=== PATIENT | male | born 1945 | race Caucasian/White ===

== ENCOUNTER 2018-03-10 08:00 | Outpatient (CLI) | payer MEDICARE ==
[2018-03-10 15:20] LABS: ALBUMIN 4.3 g/dL (3.2-5.5); ALBUMIN/GLOBULIN RATIO 1.4 (1.0-2.2); ALKALINE PHOSPHATASE 75 IU/L (42-121); ALT ALANINE AMINOTRANSFERASE 33 IU/L (10-60); AST ASPARTATE AMINOTRANSFERASE 32 IU/L (10-42); BASOPHILS % (AUTO) 0.5 %; BILIRUBIN,TOTAL 0.9 mg/dL (0.2-1.0); BUN - BLOOD UREA NITROGEN 29 mg/dL (6-20); CALCIUM 9.3 mg/dL (8.5-10.3); CARBON DIOXIDE - CO2 27 mmol/L (21-32); CHLORIDE 102 mmol/L (101-111); CHOL/HDL RATIO 5.3 (<5.0); CHOLESTEROL 155 mg/dL; CREATININE 1.1 mg/dL (0.6-1.2); EOSINOPHILS # (AUTO) 0.3 10^3/uL (0.0-0.7); EOSINOPHILS % (AUTO) 2.8 %; GFR - MDRD 66 (>89); GLUCOSE 109 mg/dL (70-100); HDL CHOLESTEROL 29 mg/dL; LDL CHOLESTEROL,CALCULATED 89 mg/dL; LDL/HDL RATIO 3.1 (<3.6); LYMPHOCYTES # (AUTO) 0.8 10^3/uL (1.5-3.5); LYMPHOCYTES % (AUTO) 8.8 %; MEAN CORPUSCULAR HEMOGLOBIN 30.3 pg (27.0-31.0); MEAN CORPUSCULAR HGB CONC 33.6 g/dL (32.0-36.0); MEAN CORPUSCULAR VOLUME 90.2 fL (80.0-94.0); MEAN PLATELET VOLUME 9.1 fL (7.4-11.4); MONOCYTES # (AUTO) 0.8 10^3/uL (0.0-1.0); MONOCYTES % (AUTO) 9.1 %; NEUTROPHILS # (AUTO) 7.2 10^3/uL (1.5-6.6); NEUTROPHILS % (AUTO) 78.8 %; PLT - PLATELET COUNT 128 10^3/uL (130-450); RED BLOOD COUNT 5.62 10^6/uL (4.70-6.10); RED CELL DISTRIBUTION WIDTH 13.4 % (12.0-15.0); SODIUM 136 mmol/L (135-145); TOTAL PROTEIN 7.3 g/dL (6.7-8.2); VLDL CHOLESTEROL 37 mg/dL; WHITE BLOOD COUNT 9.1 x10^3/uL (4.8-10.8)
[2018-03-13 12:52] LABS: HCV RNA QNT <1.18 NOT DETECTED Log IU/mL (NOT DETECTED); HCV RNA QUANT RT PCR <15 NOT DETECTED IU/mL (NOT DETECTED)
== END 2018-03-10 08:01 | disposition home or self-care (01) ==
LOC: LAB.R 08:00
PROVIDERS: ATTEND Internal Medicine
DX: D69.6 Thrombocytopenia, unspecified (principal); Z12.5 Encounter for screening for malignant neoplasm of prostate; F32.9 Major depressive disorder, single episode, unspecified; B19.20 Unspecified viral hepatitis C without hepatic coma; E78.5 Hyperlipidemia, unspecified
CPT/HCPCS: 80053; 80061; 84443; 85025; 87522; G0103; 81599; 83721; 84153; 86803

== ENCOUNTER 2019-05-24 08:51 | Outpatient (CLI) | payer MEDICARE ==
[2019-05-24 09:11] LABS: BASOPHILS # (AUTO) 0.1 10^3/uL (0.0-0.1); BASOPHILS % (AUTO) 0.8 %; EOSINOPHILS # (AUTO) 0.3 10^3/uL (0.0-0.7); EOSINOPHILS % (AUTO) 4.2 %; HGB - HEMOGLOBIN 16.5 g/dL (14.0-18.0); LYMPHOCYTES # (AUTO) 1.3 10^3/uL (1.5-3.5); LYMPHOCYTES % (AUTO) 20.4 %; MEAN CORPUSCULAR HEMOGLOBIN 31.1 pg (27.0-31.0); MEAN CORPUSCULAR HGB CONC 34.7 g/dL (32.0-36.0); MEAN CORPUSCULAR VOLUME 89.5 fL (80.0-94.0); MEAN PLATELET VOLUME 10.1 fL (7.4-11.4); MONOCYTES # (AUTO) 0.8 10^3/uL (0.0-1.0); MONOCYTES % (AUTO) 12.2 %; NEUTROPHILS % (AUTO) 62.1 %; PLT - PLATELET COUNT 110 10^3/uL (130-450); RED BLOOD COUNT 5.31 10^6/uL (4.70-6.10); RED CELL DISTRIBUTION WIDTH 13.1 % (12.0-15.0); WHITE BLOOD COUNT 6.4 x10^3/uL (4.8-10.8)
[2019-05-24 09:27] LABS: ALBUMIN 4.3 g/dL (3.2-5.5); ALBUMIN/GLOBULIN RATIO 1.5 (1.0-2.2); ALKALINE PHOSPHATASE 76 IU/L (42-121); ALT ALANINE AMINOTRANSFERASE 25 IU/L (10-60); AST ASPARTATE AMINOTRANSFERASE 25 IU/L (10-42); BILIRUBIN,TOTAL 0.8 mg/dL (0.2-1.0); BUN - BLOOD UREA NITROGEN 25 mg/dL (6-20); CALCIUM 9.4 mg/dL (8.5-10.3); CARBON DIOXIDE - CO2 27 mmol/L (21-32); CHLORIDE 107 mmol/L (101-111); CHOL/HDL RATIO 5.2 (<5.0); CHOLESTEROL 162 mg/dL; CREATININE 1.1 mg/dL (0.6-1.2); GFR - MDRD 66 (>89); GLUCOSE 112 mg/dL (70-100); HDL CHOLESTEROL 31 mg/dL; LDL CHOLESTEROL,CALCULATED 105 mg/dL; LDL/HDL RATIO 3.4 (<3.6); SODIUM 141 mmol/L (135-145); TOTAL PROTEIN 7.2 g/dL (6.7-8.2); VLDL CHOLESTEROL 26 mg/dL
== END 2019-05-24 08:52 | disposition home or self-care (01) ==
LOC: LAB 08:51
PROVIDERS: ATTEND Family Medicine
DX: D69.6 Thrombocytopenia, unspecified (principal); E78.5 Hyperlipidemia, unspecified; B19.20 Unspecified viral hepatitis C without hepatic coma
CPT/HCPCS: 36415; 80053; 80061; 83721; 84443; 85025

== ENCOUNTER 2019-06-10 10:16 | Outpatient (CLI) | payer MEDICARE | END 2019-06-10 10:17 | disposition home or self-care (01) | LOC: LAB 10:16 | PROVIDERS: ATTEND Family Medicine | DX: Z12.5 Encounter for screening for malignant neoplasm of prostate (principal) | CPT/HCPCS: 36415; G0103; 84153 ==

== ENCOUNTER 2020-07-13 07:00 | Outpatient (CLI) | payer MEDICARE ==
--- NOTE | 2020-07-13 13:13 | XRAY Report ---
PROCEDURE: Hip 1 View RT INDICATIONS: R HIP JOINT PAIN TECHNIQUE: 2 views of the hip were acquired. COMPARISON: None FINDINGS: Bones: No fractures or dislocations. No suspicious bony lesions. The visualized pelvic ring appear s intact. Mild to moderate right osteophytic degenerative changes including slight joint space narrow ing and osseous hypertrophy. Soft tissues: No suspicious soft tissue calcifications or masses. IMPRESSION: Mild to moderate right hip osteoarthritis. Reviewed by: Tiffanie Coleman MD, PhD on 07/13/2020 12:12 PM RICHIE Approved by: Tiffanie Coleman MD, PhD on 07/13/2020 12:12 PM AKLILY Station ID: [id number]
== END 2020-07-13 23:59 | disposition home or self-care (01) ==
LOC: DI.WCP 07:00
PROVIDERS: ATTEND Family Medicine
DX: M16.11 Unilateral primary osteoarthritis, right hip (principal)

== ENCOUNTER 2021-07-03 07:37 | Outpatient (CLI) | payer MEDICARE ==
[2021-07-03 12:25] LABS: BASOPHILS # (AUTO) 0.1 10^3/uL (0.0-0.1); BASOPHILS % (AUTO) 0.8 %; EOSINOPHILS # (AUTO) 0.2 10^3/uL (0.0-0.7); EOSINOPHILS % (AUTO) 3.4 %; HCT - HEMATOCRIT 48.2 % (42.0-52.0); LYMPHOCYTES # (AUTO) 1.1 10^3/uL (1.5-3.5); LYMPHOCYTES % (AUTO) 18.7 %; MEAN CORPUSCULAR HEMOGLOBIN 30.9 pg (27.0-31.0); MEAN CORPUSCULAR HGB CONC 33.2 g/dL (32.0-36.0); MEAN CORPUSCULAR VOLUME 93.2 fL (80.0-94.0); MEAN PLATELET VOLUME 10.9 fL (7.4-11.4); MONOCYTES # (AUTO) 0.7 10^3/uL (0.0-1.0); MONOCYTES % (AUTO) 11.3 %; NEUTROPHILS # (AUTO) 3.9 10^3/uL (1.5-6.6); NEUTROPHILS % (AUTO) 65.5 %; PLT - PLATELET COUNT 114 10^3/uL (130-450); RED BLOOD COUNT 5.17 10^6/uL (4.70-6.10); RED CELL DISTRIBUTION WIDTH 12.9 % (12.0-15.0); WHITE BLOOD COUNT 5.9 x10^3/uL (4.8-10.8)
[2021-07-03 13:38] LABS: ALBUMIN 4.5 g/dL (3.2-5.5); ALKALINE PHOSPHATASE 80 IU/L (42-121); ALT ALANINE AMINOTRANSFERASE 24 IU/L (10-60); AST ASPARTATE AMINOTRANSFERASE 29 IU/L (10-42); BILIRUBIN,TOTAL 0.9 mg/dL (0.2-1.0); BUN - BLOOD UREA NITROGEN 23 mg/dL (6-20); CALCIUM 9.8 mg/dL (8.5-10.3); CARBON DIOXIDE - CO2 28 mmol/L (21-32); CHLORIDE 110 mmol/L (101-111); CHOL/HDL RATIO 4.6 (<5.0); CHOLESTEROL 152 mg/dL; CREATININE 1.1 mg/dL (0.6-1.2); GFR - MDRD 66 (>89); GLUCOSE 105 mg/dL (70-100); HDL CHOLESTEROL 33 mg/dL; LDL CHOLESTEROL,CALCULATED 94 mg/dL; LDL/HDL RATIO 2.8 (<3.6); POTASSIUM 4.3 mmol/L (3.5-5.0); SODIUM 144 mmol/L (135-145); TOTAL PROTEIN 6.8 g/dL (6.7-8.2); TRIGLYCERIDES 126 mg/dL; VLDL CHOLESTEROL 25 mg/dL
[2021-07-03 13:49] LABS: THYROID STIMULATING HORMONE 3.23 uIU/mL (0.34-5.60)
== END 2021-07-03 23:59 | disposition home or self-care (01) ==
LOC: LAB.WCP 07:37
PROVIDERS: ATTEND Family Medicine
DX: D69.6 Thrombocytopenia, unspecified (principal); Z79.899 Other long term (current) drug therapy; Z12.5 Encounter for screening for malignant neoplasm of prostate; E78.5 Hyperlipidemia, unspecified; R97.20 Elevated prostate specific antigen [PSA]
CPT/HCPCS: 36415; 80053; 80061; 84443; 85025; G0103; 83721; 84153

== ENCOUNTER 2021-12-15 07:32 | Day surgery (SDC) | payer MEDICARE ==
[~2021-12-15 07:32] MED LIST: MIDAZOLAM 2 MG/2 ML VIAL ONE; PROPOFOL 500 MG/50 ML 500 MG/50 ML VIAL ONE
[2021-12-15] MEDS ORDERED: LACTATED RINGERS 1,000 ML IV ONE ×2 (07:55→09:20)
[2021-12-15 09:38] VITALS: BP 115/75
--- NOTE | 2021-12-15 11:39 | ANESTHESIA ---
Pre-Anesthesia VS, & Labs - Diagnosis screening - Procedure colonoscopy with biopsies Vital Signs: Temp Pulse Resp BP Pulse Ox 36.2 C L 78 14 115/75 97 12/15/21 09:37 12/15/21 09:37 12/15/21 09:37 12/15/21 09:37 12/15/21 09:37 Height: 6 ft Weight (kg): 90 kg Body Mass Index: 26.9 BMI Classification: Overweight - NPO >8 hours - Lab Results Lab results reviewed: Yes Home Medications and Allergies Home Medications: Ambulatory Orders Acyclovir 800 mg PO BID 12/15/21 Pravastatin [Pravachol] 40 mg PO DAILY 12/15/21 Zolpidem Tartrate [Ambien] 10 mg PO DAILY 12/15/21 traZODone [Desyrel] 50 mg PO HS 12/15/21 Acyclovir 800 mg PO BID 12/15/21 Pravastatin [Pravachol] 40 mg PO DAILY 12/15/21 Zolpidem Tartrate [Ambien] 10 mg PO DAILY 12/15/21 traZODone [Desyrel] 50 mg PO HS 12/15/21 Allergies/Adverse Reactions: Allergies Allergy/AdvReac Type Severity Reaction Status Date / Time No Known Drug Allergies Allergy Verified 12/15/21 07:49 Anes History & Medical History - Anesthetic History Anesthesia Complications: reports: No previous complications Family history of Anesthesia Complications: Denies Family history of Malignant Hyperthermia: Denies - Medical History Cardiovascular: reports: High cholesterol - Surgical History General: reports: Colonoscopy Orthopedic: reports: Other Exam General: Alert, Oriented x3, Cooperative, No acute distress Dental: WNL Mouth Openin Fingerbreadth Neck Mobility: Normal Mallampati classification: II Plan Anesthesia Type: General, Total IV Consent for Procedure(s) Verified and Reviewed: Yes Code Status: Attempt Resuscitation ASA classification: 2-Mild systemic disease Is this case an emergency?: No
--- NOTE | 2021-12-15 11:39 | ANESTHESIA POST OP EVALUATION ---
Anesthesia Post Eval - Post Anesthesia Eval Vitals: Last Vital Signs Temp 36.2 C L 12/15/21 09:37 Pulse 78 12/15/21 09:37 Resp 14 12/15/21 09:37 BP 115/75 12/15/21 09:37 Pulse Ox 97 12/15/21 09:37 CV Function Including HR & BP: Stable Pain Control: Satisfactory Nausea & Vomiting: Negative Mental Status: Baseline Respiratory Status: Airway Patent Hydration Status: Satisfactory Anesthesia Complications: None
== END 2021-12-15 07:33 | disposition home or self-care (01) ==
LOC: SDS 07:32
PROVIDERS: ATTEND Surgery
PROC: 0DBM8ZZ Excision of Descending Colon, Via Natural or Artificial Opening Endoscopic (ICD-10-PCS; principal; 2021-12-15 08:30)
DX: Z12.11 Encounter for screening for malignant neoplasm of colon (principal); D12.4 Benign neoplasm of descending colon; K64.1 Second degree hemorrhoids; K57.30 Diverticulosis of large intestine without perforation or abscess without bleeding; F17.210 Nicotine dependence, cigarettes, uncomplicated
CPT/HCPCS: 45380; J7120

== ENCOUNTER 2022-09-30 11:21 | Outpatient (CLI) | payer MEDICARE ==
[2022-09-30 11:45] LABS: BASOPHILS # (AUTO) 0.1 10^3/uL (0.0-0.1); EOSINOPHILS # (AUTO) 0.3 10^3/uL (0.0-0.7); EOSINOPHILS % (AUTO) 5.1 %; HCT - HEMATOCRIT 47.3 % (42.0-52.0); HGB - HEMOGLOBIN 15.6 g/dL (14.0-18.0); LYMPHOCYTES # (AUTO) 1.2 10^3/uL (1.5-3.5); MEAN CORPUSCULAR HEMOGLOBIN 29.8 pg (27.0-31.0); MEAN CORPUSCULAR VOLUME 90.4 fL (80.0-94.0); MEAN PLATELET VOLUME 10.4 fL (7.4-11.4); MONOCYTES # (AUTO) 0.8 10^3/uL (0.0-1.0); MONOCYTES % (AUTO) 15.4 %; NEUTROPHILS # (AUTO) 2.8 10^3/uL (1.5-6.6); NEUTROPHILS % (AUTO) 54.5 %; PLT - PLATELET COUNT 111 10^3/uL (130-450); RED BLOOD COUNT 5.23 10^6/uL (4.70-6.10); RED CELL DISTRIBUTION WIDTH 13.2 % (12.0-15.0); WHITE BLOOD COUNT 5.1 x10^3/uL (4.8-10.8)
[2022-09-30 11:59] LABS: ALBUMIN 4.4 g/dL (3.2-5.5); ALBUMIN/GLOBULIN RATIO 1.5 (1.0-2.2); ALKALINE PHOSPHATASE 82 IU/L (42-121); ALT ALANINE AMINOTRANSFERASE 26 IU/L (10-60); AST ASPARTATE AMINOTRANSFERASE 33 IU/L (10-42); BILIRUBIN,TOTAL 1.4 mg/dL (0.2-1.0); BUN - BLOOD UREA NITROGEN 25 mg/dL (6-20); CALCIUM 9.5 mg/dL (8.5-10.3); CARBON DIOXIDE - CO2 27 mmol/L (21-32); CHLORIDE 102 mmol/L (101-111); CHOL/HDL RATIO 4.5 (<5.0); CHOLESTEROL 156 mg/dL; GFR - MDRD 73 (>89); GLUCOSE 112 mg/dL (70-100); HDL CHOLESTEROL 35 mg/dL; LDL CHOLESTEROL,CALCULATED 97 mg/dL; LDL/HDL RATIO 2.8 (<3.6); POTASSIUM 4.5 mmol/L (3.5-5.0); SODIUM 137 mmol/L (135-145); TOTAL PROTEIN 7.4 g/dL (6.7-8.2); TRIGLYCERIDES 119 mg/dL; VLDL CHOLESTEROL 24 mg/dL
[2022-09-30 12:10] LABS: THYROID STIMULATING HORMONE 1.75 uIU/mL (0.34-5.60)
== END 2022-09-30 11:22 | disposition home or self-care (01) ==
LOC: LAB 11:21
PROVIDERS: ATTEND Family Medicine
DX: D69.6 Thrombocytopenia, unspecified (principal); B19.20 Unspecified viral hepatitis C without hepatic coma; E78.5 Hyperlipidemia, unspecified; R03.0 Elevated blood-pressure reading, without diagnosis of hypertension; R97.20 Elevated prostate specific antigen [PSA]
CPT/HCPCS: 36415; 80053; 80061; 84443; 85025; G0103; 83721; 84153

== ENCOUNTER 2022-12-18 10:18 | Inpatient (IN) | payer MEDICARE ==
[2022-12-18 11:15] LABS: BASOPHILS # (AUTO) 0.1 10^3/uL (0.0-0.1); BASOPHILS % (AUTO) 0.8 %; EOSINOPHILS # (AUTO) 0.2 10^3/uL (0.0-0.7); EOSINOPHILS % (AUTO) 2.3 %; HCT - HEMATOCRIT 47.9 % (42.0-52.0); LYMPHOCYTES % (AUTO) 13.1 %; MEAN CORPUSCULAR HEMOGLOBIN 29.9 pg (27.0-31.0); MEAN CORPUSCULAR HGB CONC 33.4 g/dL (32.0-36.0); MEAN CORPUSCULAR VOLUME 89.5 fL (80.0-94.0); MEAN PLATELET VOLUME 10.5 fL (7.4-11.4); MONOCYTES # (AUTO) 1.3 10^3/uL (0.0-1.0); MONOCYTES % (AUTO) 17.2 %; NEUTROPHILS # (AUTO) 4.8 10^3/uL (1.5-6.6); NEUTROPHILS % (AUTO) 66.1 %; PLT - PLATELET COUNT 131 10^3/uL (130-450); RED BLOOD COUNT 5.35 10^6/uL (4.70-6.10); RED CELL DISTRIBUTION WIDTH 13.7 % (12.0-15.0); WHITE BLOOD COUNT 7.3 x10^3/uL (4.8-10.8)
--- NOTE | 2022-12-18 11:18 | XRAY Report ---
PROCEDURE: Chest 1 View X-Ray INDICATIONS: Chest pain TECHNIQUE: One view of the chest was acquired. COMPARISON: None. FINDINGS: Surgical changes and devices: None. Lungs and pleura: Questionable small nodule at the right lung base near the costophrenic angle. No d ense consolidation or pleural effusion. Mediastinum: Mediastinal contours appear normal. Heart size is normal. Bones and chest wall: No suspicious bony lesions. Overlying soft tissues appear unremarkable. IMPRESSION: No acute radiographic abnormality. There is a questionable nodule at the right lung base, near the costophrenic angle, that may represent costal cartilage eccentric calcification. Consider f uture imaging to ensure stability/resolution. Reviewed by: Terrence Lara MD on 12/18/2022 11:17 AM PDT Approved by: Terrence Lara MD on 12/18/2022 11:17 AM PDT Station ID: [id number]
[2022-12-18 11:35] LABS: ALBUMIN 3.6 g/dL (3.2-5.5); ALBUMIN/GLOBULIN RATIO 1.1 (1.0-2.2); CALCIUM 9.1 mg/dL (8.5-10.3); POTASSIUM 4.1 mmol/L (3.5-5.0)
--- NOTE | 2022-12-18 11:47 | ED Physician Documentation ---
History of Present Illness - Stated complaint Stated Complaint: DIZZINESS,WEAKNESS - Chief complaint Chief Complaint: General - History obtained from History obtained from: Patient - History of Present Illness Timing: How many days ago (10) Pain level max: 0 Pain level now: 0 - Additonal information Additional information: Patient is a 77-year-old male who presents to the emergency department stating that he has felt generally unwell for the last 10 days. No specific symptoms. He states he had 1 day of epigastric abdominal pain, that then resolved. No vomiting. No diarrhea. Occasional nausea. No fevers, cough, congestion. Has a history of hepatitis C that has been treated with interferon in the past. He states that his hepatitis C has been in remission for the last several years after being treated with interferon. No changes to his normal medications. No recent travel. Review of Systems Constitutional: denies: Fever, Chills Nose: denies: Rhinorrhea / runny nose, Congestion Respiratory: denies: Cough GI: denies: Vomiting, Diarrhea Skin: denies: Rash Musculoskeletal: denies: Neck pain, Back pain Neurologic: denies: Headache PD PAST MEDICAL HISTORY - Past Medical History Cardiovascular: High cholesterol Respiratory: None Neuro: None Endocrine/Autoimmune: None GI: Other (Hep C) Psych: Depression, Anxiety - Past Surgical History General: Colonoscopy Ortho: Other - Present Medications Home Medications: Ambulatory Orders Medication Instructions Recorded Confirmed Zolpidem Tartrate [Ambien] 10 mg PO DAILY 12/15/21 12/18/22 Amlodipine Besylate [Norvasc] 10 mg PO DAILY 12/18/22 12/18/22 Atorvastatin [Lipitor] 20 mg PO QPM 12/18/22 12/18/22 - Allergies Allergies/Adverse Reactions: Allergies Allergy/AdvReac Type Severity Reaction Status Date / Time No Known Drug Allergies Allergy Verified 12/18/22 10:38 - Social History Does the pt smoke?: No Smoking Status: Never smoker PD ED PE NORMAL - Vitals Vital signs reviewed: Yes - General General: Alert and oriented X 3, No acute distress, Other (Jaundiced) - HEENT HEENT: PERRL, Moist mucous membranes - Neck Neck: Supple, no meningeal sign - Cardiac Cardiac: RRR, No murmur, Strong equal pulses - Respiratory Respiratory: No respiratory distress, Clear bilaterally - Abdomen Abdomen: Soft, Non tender, Non distended - Back Back: No CVA TTP, No spinal TTP - Derm Derm: Warm and dry - Extremities Extremities: No calf tenderness / cord - Neuro Neuro: Alert and oriented X 3 - Psych Psych: Normal mood, Normal affect Results - Vitals Vitals: Vital Signs - 24 hr 12/18/22 12/18/22 12/18/22 10:31 11:03 13:00 Temperature 35.8 C L Heart Rate 95 85 78 Respiratory 18 16 16 Rate Blood Pressure 135/79 H 152/84 H 154/76 H O2 Saturation 97 98 98 12/18/22 12/18/22 12/18/22 15:45 17:29 19:00 Temperature Heart Rate 83 85 76 Respiratory 16 16 16 Rate Blood Pressure 148/87 H 155/90 H 152/94 H O2 Saturation 96 97 96 Oxygen O2 Source Room air - EKG (time done) 1041 EKG releavant findings:: EKG personally interpreted by author of this note. Relevant findings are: Rate: Rate (enter#) (87) Rhythm: NSR [place]: Anterior hemiblock (LAFB) Intervals: Normal [place] QRS: Normal Ischemia: Normal ST segments - Labs Labs: Laboratory Tests 12/18/22 12/18/22 12/18/22 10:56 10:56 10:56 WBC 7.3 RBC 5.35 Hgb 16.0 Hct 47.9 MCV 89.5 MCH 29.9 MCHC 33.4 RDW 13.7 Plt Count 131 MPV 10.5 Neut # (Auto) 4.8 Lymph # (Auto) 1.0 L Newton # (Auto) 1.3 H Eos # (Auto) 0.2 Baso # (Auto) 0.1 Absolute Nucleated RBC 0.00 Nucleated RBC % 0.0 PT INR APTT Sodium 137 Potassium 4.1 Chloride 104 Carbon Dioxide 24 Anion Gap 9.0 BUN 28 H Creatinine 1.0 Estimated GFR (MDRD) 73 L Glucose 118 H Calcium 9.1 Total Bilirubin 4.0 H AST 351 H ALT 235 H Alkaline Phosphatase 430 H Troponin I High Sens 14.1 Total Protein 7.0 Albumin 3.6 Globulin 3.4 Albumin/Globulin Ratio 1.1 Lipase 33 Nasal Adenovirus (PCR) Nasal B. parapertussis DNA (PCR) Nasal Coronavir 229E PCR Nasal Coronavir HKU1 PCR Nasal Coronavir NL63 PCR Nasal Coronavir OC43 PCR Nasal Enterovir/Rhinovir PCR Nasal Influenza B PCR Nasal Influenza A PCR Nasal Parainfluen 1 PCR Nasal Parainfluen 2 PCR Nasal Parainfluen 3 PCR Nasal Parainfluen 4 PCR Nasal RSV (PCR) Nasal B.pertussis DNA PCR Nasal C.pneumoniae (PCR) Garth Human Metapneumo PCR Nasal M.pneumoniae (PCR) Nasal SARS-CoV-2 (PCR) 12/18/22 12/18/22 10:56 12:11 WBC RBC Hgb Hct MCV MCH MCHC RDW Plt Count MPV Neut # (Auto) Lymph # (Auto) Newton # (Auto) Eos # (Auto) Baso # (Auto) Absolute Nucleated RBC Nucleated RBC % PT 11.9 INR 1.1 APTT 31.0 Sodium Potassium Chloride Carbon Dioxide Anion Gap BUN Creatinine Estimated GFR (MDRD) Glucose Calcium Total Bilirubin AST ALT Alkaline Phosphatase Troponin I High Sens Total Protein Albumin Globulin Albumin/Globulin Ratio Lipase Nasal Adenovirus (PCR) NOT DETECTED Nasal B. parapertussis DNA (PCR) NOT DETECTED Nasal Coronavir 229E PCR NOT DETECTED Nasal Coronavir HKU1 PCR NOT DETECTED Nasal Coronavir NL63 PCR NOT DETECTED Nasal Coronavir OC43 PCR NOT DETECTED Nasal Enterovir/Rhinovir PCR NOT DETECTED Nasal Influenza B PCR NOT DETECTED Nasal Influenza A PCR NOT DETECTED Nasal Parainfluen 1 PCR NOT DETECTED Nasal Parainfluen 2 PCR NOT DETECTED Nasal Parainfluen 3 PCR NOT DETECTED Nasal Parainfluen 4 PCR NOT DETECTED Nasal RSV (PCR) NOT DETECTED Nasal B.pertussis DNA PCR NOT DETECTED Nasal C.pneumoniae (PCR) NOT DETECTED Garth Human Metapneumo PCR NOT DETECTED Nasal M.pneumoniae (PCR) NOT DETECTED Nasal SARS-CoV-2 (PCR) NOT DETECTED - Rads (name of study) Right upper quadrant ultrasound Relevant Findings:: Final report received, See rad report MRCP Relevant Findings:: Final report received, See rad report PD Medical Decision Making - ED course Complexity details: reviewed results, re-evaluated patient, considered differential, d/w patient, d/w family, d/w product development consultant ED course: CBC does not show any significant abnormalities. Coagulation studies are normal. Chemistry reveals an elevated BUN to creatinine ratio. Total bilirubin is elevated at 4.0, AST 351, ALT 235 and alkaline phosphatase of 430. High sensitive troponin is negative. Respiratory PCR is negative. Chest x-ray does not show any acute abnormalities. Abdominal ultrasound shows a dilated common bile duct as well as cholelithiasis. No choledocholithiasis visible on ultrasound. MRCP was a obtained which does confirm choledocholithiasis. Consulted general surgery, Dr. Kunz, recommends ERCP then a laparoscopic cholecystectomy. Contacted several hospitals in the area including [facility] in [facility]. There are no beds available at any of these facilities. I was able to speak with GI from [facility], Dr. Callahan, Who states that the patient can be admitted to our hospital here, set up for an ERCP tomorrow, transported by ambulance for the ERCP then transported back here. The time of the procedure will be confirmed with the GI team at [facility]. The patient will be admitted to the hospitalist for further care with Dr. Kunz, general surgery consulting. Patient was started on Zosyn. IV fluids given. Patient will be n.p.o. after midnight. This document was made in part using voice recognition software. While efforts are made to proofread this document, sound alike and grammatical errors may occur. Departure - Departure Disposition: 66 [facility] DC/Xfer Clinical Impression: Choledocholithiasis, Elevated liver function tests Cholelithiasis Qualifiers: Cholelithiasis location: gallbladder and bile duct Cholecystitis presence: without cholecystitis Biliary obstruction: with biliary obstruction Qualified Code(s): K80.71 - Calculus of gallbladder and bile duct without cholecystitis with obstruction Condition: Stable Discharge Date/Time: 12/18/22 21:17
[2022-12-18 12:15] LABS: INR 1.1 (0.8-1.2); PT - PROTHROMBIN TIME 11.9 secs (9.9-12.6)
[2022-12-18 13:10] LABS: CORONAVIRUS 229E-RESP PCR NOT DETECTED; CORONAVIRUS HKU1-RESP PCR NOT DETECTED; CORONAVIRUS NL63-RESP PCR NOT DETECTED; CORONAVIRUS OC43-RESP PCR NOT DETECTED; HUMAN METAPNEUMOVIRUS NOT DETECTED; INFLUENZA A- RESP PCR PANEL NOT DETECTED; RHINOVIRUS/ENTEROVIRUS NOT DETECTED; SARS-CoV-2 -RESP PCR PANEL NOT DETECTED
[2022-12-18 13:11] LABS: B. PARAPERTUSSIS- RESP PCR PAN NOT DETECTED; B. PERTUSSIS- RESP PCR PANEL NOT DETECTED; C. PNEUMONIAE- RESP PCR PANEL NOT DETECTED; INFLUENZA B - RESP PCR PANEL NOT DETECTED; M. PNEUMONIAE- RESP PCR PANEL NOT DETECTED; PARAINFLUENZA VIRUS 1 NOT DETECTED; PARAINFLUENZA VIRUS 2 NOT DETECTED; PARAINFLUENZA VIRUS 3 NOT DETECTED; PARAINFLUENZA VIRUS 4 NOT DETECTED; RSV- RESP PCR PANEL NOT DETECTED
--- NOTE | 2022-12-18 13:18 | Ultrasound Report ---
PROCEDURE: Abdomen Limited INDICATIONS: elevated LFT's, h/o hep C TECHNIQUE: Real-time focused scanning was performed of the abdomen, with image documentation. COMPARISON: None FINDINGS: Liver is normal in size and show normal liver parenchymal echotexture. No discrete hepatic lesion. Mobile stones are noted in dependent portion of gallbladder lumen. There is mild gallbladder wall thi ckening measures up to 3.25 mm in thickness. No pericholecystic fluid or sonographic Tompkins's sign. There is no gross intrahepatic biliary ductal dilatation. Dilatation of common bile duct is seen roly ures up to 10.9 mm in diameter. Visualized portion of pancreas shows no gross abnormalities. Right kidney measures 11.9 cm in length and 2.1 cm in renal cortical thickness. No solid-appearing re nal lesion. No hydronephrosis. IMPRESSION: 1. Cholelithiasis with mild gallbladder wall thickening. No evidence of acute cholecystitis. Chronic cholecystitis cannot be excluded. 2. Dilatation of common bile duct, no obvious choledocholithiasis is seen. If indicated, ERCP or MRCP can be done for further evaluation of this region. Reviewed by: Shahab Arauz MD on 12/18/2022 12:17 PM RICHIE Approved by: Shahab Arauz MD on 12/18/2022 12:17 PM AKDT Station ID: [id number]
[2022-12-18] MEDS ORDERED: GADOBUTROL 10 MMOL/10 ML VIAL ONE (14:37)
--- NOTE | 2022-12-18 16:09 | MRI Report ---
PROCEDURE: MRCP W/WO INDICATIONS: elevated LFT, dilated CBD, gallstones CONTRAST: gadavist 8.9ml TECHNIQUE: Coronal ultra fast SE through the abdomen, axial 2-D spoiled GE in- and [id number], and breath-hold T2 FSE with fat saturation through the biliary system and pancreas. Oblique coronal and axial thin- slice ultra fast SE, radial thick-slab ultra fast SE centered on the extrahepatic bile ducts. COMPARISON: Ultrasound same-day FINDINGS: Image quality: Good Lower chest: No pleural effusions. Solid organs: Liver is unremarkable. Suspected tiny right lobe cyst. Cholelithiasis. There is mild pericholecystic edema gallbladder distention. Choledocholithiasis is pr esent. CBD measures up to 8 to 9 mm. No splenomegaly. No adrenal nodules. No pathologic dilation of the pancreatic duct. No hydronephrosis . There are small renal cysts. Vessels and lymph nodes: Prominent, non-specific lymph nodes are present that are not enlarged by siz e criteria. No abdominal aortic aneurysm. The main portal vein is patent. Bowel and peritoneum: No evidence of small bowel obstruction. No pathologic ascites. Body wall: Unremarkable Bones: No acute or suspicious osseous abnormality. There are degenerative changes. IMPRESSION: Cholelithiasis and choledocholithiasis. Mildly dilated biliary system. No sonographic Tompkins's sign w as seen on same-day ultrasound. Other findings as above. Reviewed by: Terrence Lara MD on 12/18/2022 4:07 PM PDT Approved by: Terrence Lara MD on 12/18/2022 4:07 PM PDT Station ID: [id number]
[2022-12-18] MEDS ORDERED: SODIUM CHLORIDE 0.9% 1,000 ML IV STA (16:37)
[2022-12-18] MEDS ORDERED: PIPERACILLIN/TAZOBACTAM 3.375 GM in SODIUM CHLORIDE 0.9% MINIBAG 100 ML IV STA (16:37)
[2022-12-18] MEDS ORDERED: GADOBUTROL 10 MMOL/10 ML VIAL IVP ONE (18:51)
--- NOTE | 2022-12-18 19:32 | CONSULTATION NOTE ---
Referring Provider Name of Referring Provider:: Dr. Jameson Rush Consult Date: 12/18/22 Chief Complaint - Chief Complaint Chief Complaint: Symptomatic choledocholithiasis History of Present Illness - Admitted From Admitted From:: ED - History Obtained From Records Reviewed: Yes History obtained from: Patient and chart Exam Limitations: None. - History of Present Illness HPI Comment/Other: The patient is a very pleasant 77-year-old male who is evaluated in bed 1 at [facility]'s emergency department at the request of Dr. Jameson Rush. I was called after his work-up revealed choledocholithiasis. The patient's history started several weeks ago when he was at his [employer] basketball game and he had the abrupt onset of right upper quadrant pain associated with some nausea. He states it felt as though he was coming down with the flu. He felt bad enough that he went out to his truck and did not watch any more basketball. That morning he had breakfast consisting of eggs sausage toast and hashbrowns at [facility]. He then spent the next several days in bed due to how poorly he felt. He then had a recurrence of the symptoms about a week later which was approximately 10 days ago. This spontaneously resolved but again was associated with some nausea but no vomiting. His most recent symptoms started yesterday and when they did not remit he came in to the emergency department. He has a distant history of being treated for hepatitis C. Importantly he is related to [facility]. History - Past Medical History Cardiovascular: reports: High cholesterol Respiratory: reports: None Neuro: reports: None Endocrine/Autoimmune: reports: None GI: reports: Other (Hep C) Psych: reports: Depression, Anxiety MRSA Hx?: No - Past Surgical History General: reports: Colonoscopy Ortho: reports: Other Meds/Allgy - Home Medications Home Medications: Ambulatory Orders Medication Instructions Recorded Confirmed Acyclovir 800 mg PO BID 12/15/21 12/15/21 Pravastatin [Pravachol] 40 mg PO DAILY 12/15/21 12/15/21 Zolpidem Tartrate [Ambien] 10 mg PO DAILY 12/15/21 12/15/21 traZODone [Desyrel] 50 mg PO HS 12/15/21 12/15/21 Cetirizine [ZyrTEC] 10 mg PO DAILY #15 tablet 05/10/22 Meclizine HCl [Motion Sickness] 25 mg PO Q6H PRN #30 tablet 05/10/22 dexAMETHasone [Decadron] 4 mg PO DAILY #5 tablet 05/10/22 diazePAM [Valium] 5 mg PO BID PRN 5 Days #10 tablet 05/10/22 - Allergies Allergies/Adverse Reactions: Allergies Allergy/AdvReac Type Severity Reaction Status Date / Time No Known Drug Allergies Allergy Verified 12/18/22 10:38 Review of Systems - Cardiovascular Cariovascular: denies: Irregular heart rate - Respiratory Respiratory: denies: Cough, Sputum production - Gastrointestinal Gastrointestinal: reports: Abdominal pain, Nausea. denies: Black stools, Bloody stools, Vomiting, Corby blood emesis - Integumentary Integumentary: denies: Rash - Neurological Neurological: denies: General weakness, Focal weakness - Psychiatric Psychiatric: denies: Depression, Anxiety Exam - Vital Signs Reviewed Vital Signs: Yes Vital Signs: Vital Signs x48h Pulse Resp BP Pulse Ox 12/18/22 17:29 85 16 155/90 H 97 12/18/22 15:45 83 16 148/87 H 96 12/18/22 13:00 78 16 154/76 H 98 - Physical Exam General Appearance: positive: Mild distress Eyes Bilateral: positive: No lid inflammation, Conjunctivae nml, No scleral icterus ENT: positive: No signs of dehydration Neck: positive: Trachea midline Respiratory: positive: Chest non-tender, No respiratory distress, Breath sounds nml Cardiovascular: positive: Regular rate & rhythm, No murmur Abdomen: positive: Tenderness (Slight in right upper quadrant.) Skin: positive: Color nml, Warm, Dry. negative: Cyanosis Extremities: positive: Non-tender, Nml appearance. negative: Calf tenderness, Giovanna's sign/cords Neurologic/Psychiatric: positive: Oriented x3, Motor nml, Sensation nml, Mood/affect nml Comments/Other: Milagros was present for the entire conversation as well as the examination. Conclusion/Plan - Lab Results Lab results reviewed: Yes Fish Bones: 12/18/22 10:56 12/18/22 10:56 - Diagnostic Imaging Results Diagnostic Imaging Results: positive: Final report reviewed - Other Other Results/Comments: Assessment: symptomatic cholelithiasis and choledocholithiasis. Plan: ERCP with clearance of the duct followed by laparoscopic cholecystectomy. My understanding is that the patient will be taken by ambulance tomorrow to [facility] where an ERCP will be performed. Following this the patient will return to this hospital where I will remove his gallbladder laparoscopically likely on . The indications, procedure, alternatives including the operation, and complications including but not limited to infection, bleeding with all of its risks, common bile duct injury requiring operation, and were fully explained to the patient and all questions were answered. Verbal consent was obtained. Written consent will be obtained. I have asked the patient to let us know if there is any way we can make his stay at [facility] more comfortable and he stated that he would let us know. I explained the pathophysiology of cholelithiasis and choledocholithiasis. I wandy pictures explaining how the surgery is performed. 45 minutes of [id number] time was spent with the patient with additional time required to complete the paperwork CPT 61320
[2022-12-18] MEDS ORDERED: MORPHINE 2 MG/ML CARPUJECT IVP PRN (20:09)
[2022-12-18] MEDS ORDERED: SODIUM CHLORIDE FLUSH 0.9% 10 ML SYRINGE IVP PRN (20:09)
--- NOTE | 2022-12-18 20:27 | HISTORY & PHYSICAL EXAMINATION ---
Chief Complaint - Chief Complaint Chief Complaint: Abdominal pain History of Present Illness - History of Present Illness HPI Comment/Other: 77 y old male woth PMH Hyperlipidemia, insomnia presented to the ER due to abdominal pain which is in right upper quadrant, intermittent, shap, moderate in intensity, non-radiating, associated with nausea.Denies fever, vomiting, diarrhea. Denies headache, chest pain, SOB, symptoms On presentaion, afebrile, BP accelearted Labs showed WBC normal. abnormal LFT with hyperbilirubinemia US abdomen showed galltones with mild gall bladder wll thickening and dilated CBD MRCP showed cholelithiasis and choledocolithaisis Surgery was consulted and patient was evaluated by Dr Kunz who recommends ERCP and lap cholecystectomy As per ER physician ( Dr Rush), pt will be transported to [facility] for ERCP tomorrow and than come back and Dr Kunz will do cholecystectomy In ER, pt was given zosyn Patient is beding admitted due to cholelithiasis, possible cholecystitis and choledocolothisis History - Past Medical History Cardiovascular: reports: High cholesterol Respiratory: reports: None Neuro: reports: None Endocrine/Autoimmune: reports: None GI: reports: Other (Hep C) Psych: reports: Depression, Anxiety MRSA Hx?: No - Past Surgical History General: reports: Colonoscopy Ortho: reports: Other Meds/Allgy - Home Medications Home Medications: Ambulatory Orders Medication Instructions Recorded Confirmed Zolpidem Tartrate [Ambien] 10 mg PO DAILY 12/15/21 12/15/21 Amlodipine Besylate [Norvasc] 10 mg PO DAILY 12/18/22 12/18/22 Atorvastatin [Lipitor] 20 mg PO QPM 12/18/22 12/18/22 - Allergies Allergies/Adverse Reactions: Allergies Allergy/AdvReac Type Severity Reaction Status Date / Time No Known Drug Allergies Allergy Verified 12/18/22 10:38 Review of Systems - Other Findings Other Findings: 10 point systems were reviewed and were negative except mentioned in the HPI Exam - Vital Signs Vital Signs: Vital Signs x48h Pulse Resp BP Pulse Ox 12/18/22 19:00 76 16 152/94 H 96 12/18/22 17:29 85 16 155/90 H 97 12/18/22 15:45 83 16 148/87 H 96 12/18/22 13:00 78 16 154/76 H 98 - Physical Exam General Appearance: positive: No acute distress Eyes Bilateral: positive: Normal inspection ENT: positive: ENT inspection nml Neck: positive: Nml inspection Respiratory: positive: No respiratory distress, Breath sounds nml Cardiovascular: positive: Regular rate & rhythm Abdomen: positive: Nml bowel sounds, No distention, Tenderness, Other (MILD TENDERNESS IN RUQ) Skin: positive: No rash Extremities: positive: No pedal edema Neurologic/Psychiatric: positive: Oriented x3, Motor nml Conclusion/Plan - Lab Results Lab results reviewed: Yes Fish Bones: 12/18/22 10:56 12/18/22 10:56 - Other Other Results/Comments: A; Cholelithiasis Possible cholecystitis Choledocolithiasis Abnormal LFT with hyperbilirubinemia Hyperlipidemia Insomnia PLAN: Admit to Med Surg NPO after midnight NS @ 100 cc/h Zosyn emperically Zofran iv prn for nausea Morphine iv prn for pain Per Dr Rush, Pt will be transported to [facility] tomorrow for ERCP Per Dr Kunz ( Surgery), Lap cholecystectomy after ERCP DVT prophylaxic: SCD Full code Pt is admitted as in patient as more than 2 midnight stay is expected
[2022-12-18] MEDS: ONDANSETRON 4 MG/2 ML VIAL IVP PRN (21:31)
[2022-12-18] MEDS: PIPERACILLIN/TAZOBACTAM 3.375 GM in SODIUM CHLORIDE 0.9% MINIBAG 100 ML IV SCH (22:14)
[2022-12-18] MEDS: SODIUM CHLORIDE 0.9% 1,000 ML IV SCH (22:14)
[2022-12-18] MEDS ORDERED: ZOLPIDEM 5 MG TABLET PO PRN (23:53)
[2022-12-19] MEDS: SODIUM CHLORIDE FLUSH 0.9% 10 ML SYRINGE IVP SCH ×3 (03:13→21:38)
[2022-12-19] MEDS: PIPERACILLIN/TAZOBACTAM 3.375 GM in SODIUM CHLORIDE 0.9% MINIBAG 100 ML IV SCH ×3 (05:35→21:39)
[2022-12-19] MEDS: ONDANSETRON 4 MG/2 ML VIAL IVP PRN ×2 (07:42→20:10)
[2022-12-19] MEDS: amLODIPine 5 MG TABLET PO SCH (08:35)
[2022-12-19] MEDS: SODIUM CHLORIDE 0.9% 1,000 ML IV SCH ×2 (09:55→21:37)
[2022-12-19] MEDS ORDERED: NICOTINE 7 MG PATCH TOP PRN (13:03)
--- NOTE | 2022-12-19 13:09 | PROVIDER PROGRESS NOTE ---
Assessment/Plan - Problem List (1) Cholecystitis, acute with cholelithiasis Qualifiers: Biliary obstruction: with biliary obstruction Qualified Code(s): K80.01 - Calculus of gallbladder with acute cholecystitis with obstruction Assessment/Plan: Patient denies any pain today, he only complains of being hungry Plan: We will start Protonix IV daily to decrease gastric acid Continue with n.p.o. except meds as orders Plan is to transfer for an ERCP to be done at [facility] this afternoon, return back this evening and for a lap jonh to be done tomorrow by Gen Surg I discussed this entire plan today with the patient and his was at bedside 2) Abnormal LFT with hyperbilirubinemia This is likely related to the stone Plan: As in #1 3) Hyperlipidemia Plan: For the time being we will not use his statin 4) Insomnia Plan: He may take nightly Ambien, which she takes at home - Current Meds Current Meds: Current Medications Generic Name Dose Route Start Last Admin Trade Name Freq PRN Reason Stop Dose Admin Amlodipine Besylate 10 mg 12/19/22 09:00 12/19/22 08:35 Amlodipine 5 Mg Tablet PO 10 mg DAILY VANNA Administration Sodium Chloride 1,000 mls @ 100 mls/hr 12/18/22 21:00 12/19/22 09:55 Normal Saline 0.9% IV 100 mls/hr .Q10H VANNA Administration Piperacillin Sod/Tazobactam 100 mls @ 25 mls/hr 12/18/22 21:00 12/19/22 12:56 Sod 3.375 gm/ Sodium Chloride IV 25 mls/hr Q8H VANNA Administration Ondansetron HCl 4 mg 12/18/22 20:09 12/19/22 07:42 Ondansetron 4 Mg/2 Ml Vial IVP 4 mg Q6HR PRN Administration Nausea / Vomiting Sodium Chloride 10 ml 12/18/22 20:09 12/18/22 21:31 Sodium Chloride Flush 0.9% 10 Ml Syringe IVP 10 ml PRN PRN Administration NEEDED PER PROVIDER ORDERS Sodium Chloride 10 ml 12/19/22 01:00 12/19/22 07:43 Sodium Chloride Flush 0.9% 10 Ml Syringe IVP 10 ml 0100,0900,1700 VANNA Administration - Lab Result Fish Bone Diagrams: 12/18/22 10:56 12/18/22 10:56 - Diagnostic Imaging Results Diagnostic Imaging Results: Final report reviewed - Additional Planning My Orders: My Active Orders 12/19/22 13:03 Pantoprazole [Protonix] 40 mg IV DAILY 12/19/22 13:03 Nicotine 7 mg Patch [Nicoderm] 1 patch TOP DAILY PRN 12/19/22 21:00 Zolpidem [Ambien] 10 mg PO QPM 12/20/22 05:00 BMP - BASIC METABOLIC PANEL [CHEM] DAILYLAB CBC - COMP BLD CT W/AUTO DIFF [HEME] DAILYLAB 12/21/22 05:00 BMP - BASIC METABOLIC PANEL [CHEM] DAILYLAB CBC - COMP BLD CT W/AUTO DIFF [HEME] DAILYLAB 12/22/22 05:00 BMP - BASIC METABOLIC PANEL [CHEM] DAILYLAB CBC - COMP BLD CT W/AUTO DIFF [HEME] DAILYLAB Subjective - Subjective Patient Reports: Feeling Better, Other (No abdominal pain. He is hungry) Objective Vital Signs: Vital Signs - 24 hr 12/18/22 12/18/22 12/18/22 15:45 17:29 19:00 Temperature Heart Rate 83 85 76 Heart Rate [ Brachial] Respiratory 16 16 16 Rate Blood Pressure 148/87 H 155/90 H 152/94 H Blood Pressure [Left Brachial artery] Blood Pressure [Right Brachial artery] O2 Saturation 96 97 96 12/18/22 12/18/22 12/19/22 21:14 21:58 00:00 Temperature 36.5 C 36.6 C Heart Rate 80 Heart Rate [ 82 73 Brachial] Respiratory 16 18 16 Rate Blood Pressure 159/92 H Blood Pressure [Left Brachial artery] Blood Pressure 151/75 H 125/65 [Right Brachial artery] O2 Saturation 93 99 98 12/19/22 07:29 Temperature 36.8 C Heart Rate Heart Rate [ 72 Brachial] Respiratory 15 Rate Blood Pressure Blood Pressure 156/70 H [Left Brachial artery] Blood Pressure [Right Brachial artery] O2 Saturation 96 Oxygen O2 Source Room air I&O (Last 24 Hrs): Intake and Output Totals x24h 12/17/22 12/18/22 12/19/22 23:59 23:59 23:59 Intake Total 900 1200 Balance 900 1200 General: Alert, Oriented x3 HEENT: Atraumatic, Mucous membr. moist/pink Neck: Supple, No JVD Neuro: Alert, Non Focal Cardiovascular: Regular rate Respiratory: No respiratory distress Abdomen: Normal bowel sounds, Soft, No tenderness Extremities: No clubbing, No edema, No tenderness/swelling - Results Results: Laboratory Results WBC 7.3 x10^3/uL (4.8-10.8) 12/18/22 10:56 RBC 5.35 10^6/uL (4.70-6.10) 12/18/22 10:56 Hgb 16.0 g/dL (14.0-18.0) 12/18/22 10:56 Hct 47.9 % (42.0-52.0) 12/18/22 10:56 MCV 89.5 fL (80.0-94.0) 12/18/22 10:56 MCH 29.9 pg (27.0-31.0) 12/18/22 10:56 MCHC 33.4 g/dL (32.0-36.0) 12/18/22 10:56 RDW 13.7 % (12.0-15.0) 12/18/22 10:56 Plt Count 131 10^3/uL (130-450) 12/18/22 10:56 MPV 10.5 fL (7.4-11.4) 12/18/22 10:56 Neut # (Auto) 4.8 10^3/uL (1.5-6.6) 12/18/22 10:56 Lymph # (Auto) 1.0 10^3/uL (1.5-3.5) L 12/18/22 10:56 Giles # (Auto) 1.3 10^3/uL (0.0-1.0) H 12/18/22 10:56 Eos # (Auto) 0.2 10^3/uL (0.0-0.7) 12/18/22 10:56 Baso # (Auto) 0.1 10^3/uL (0.0-0.1) 12/18/22 10:56 Absolute Nucleated RBC 0.00 x10^3/uL 12/18/22 10:56 Nucleated RBC % 0.0 /100WBC 12/18/22 10:56 PT 11.9 secs (9.9-12.6) 12/18/22 10:56 INR 1.1 (0.8-1.2) 12/18/22 10:56 APTT 31.0 secs (24.9-33.3) 12/18/22 10:56 Sodium 137 mmol/L (135-145) 12/18/22 10:56 Potassium 4.1 mmol/L (3.5-5.0) 12/18/22 10:56 Chloride 104 mmol/L (101-111) 12/18/22 10:56 Carbon Dioxide 24 mmol/L (21-32) 12/18/22 10:56 Anion Gap 9.0 (6-13) 12/18/22 10:56 BUN 28 mg/dL (6-20) H 12/18/22 10:56 Creatinine 1.0 mg/dL (0.6-1.2) 12/18/22 10:56 Estimated GFR (MDRD) 73 (>89) L 12/18/22 10:56 Glucose 118 mg/dL (70-100) H 12/18/22 10:56 Calcium 9.1 mg/dL (8.5-10.3) 12/18/22 10:56 Total Bilirubin 4.0 mg/dL (0.2-1.0) H 12/18/22 10:56 AST 351 IU/L (10-42) H 12/18/22 10:56 ALT 235 IU/L (10-60) H 12/18/22 10:56 Alkaline Phosphatase 430 IU/L (42-121) H 12/18/22 10:56 Troponin I High Sens 14.1 ng/L (2.3-19.7) 12/18/22 10:56 Total Protein 7.0 g/dL (6.7-8.2) 12/18/22 10:56 Albumin 3.6 g/dL (3.2-5.5) 12/18/22 10:56 Globulin 3.4 g/dL (2.1-4.2) 12/18/22 10:56 Albumin/Globulin Ratio 1.1 (1.0-2.2) 12/18/22 10:56 Lipase 33 U/L (22-51) 12/18/22 10:56 Nasal Adenovirus (PCR) NOT DETECTED 12/18/22 12:11 Nasal B. parapertussis DNA (PCR) NOT DETECTED 12/18/22 12:11 Nasal Coronavir 229E PCR NOT DETECTED 12/18/22 12:11 Nasal Coronavir HKU1 PCR NOT DETECTED 12/18/22 12:11 Nasal Coronavir NL63 PCR NOT DETECTED 12/18/22 12:11 Nasal Coronavir OC43 PCR NOT DETECTED 12/18/22 12:11 Nasal Enterovir/Rhinovir PCR NOT DETECTED 12/18/22 12:11 Nasal Influenza B PCR NOT DETECTED 12/18/22 12:11 Nasal Influenza A PCR NOT DETECTED 12/18/22 12:11 Nasal Parainfluen 1 PCR NOT DETECTED 12/18/22 12:11 Nasal Parainfluen 2 PCR NOT DETECTED 12/18/22 12:11 Nasal Parainfluen 3 PCR NOT DETECTED 12/18/22 12:11 Nasal Parainfluen 4 PCR NOT DETECTED 12/18/22 12:11 Nasal RSV (PCR) NOT DETECTED 12/18/22 12:11 Nasal B.pertussis DNA PCR NOT DETECTED 12/18/22 12:11 Nasal C.pneumoniae (PCR) NOT DETECTED 12/18/22 12:11 Garth Human Metapneumo PCR NOT DETECTED 12/18/22 12:11 Nasal M.pneumoniae (PCR) NOT DETECTED 12/18/22 12:11 Nasal SARS-CoV-2 (PCR) NOT DETECTED 12/18/22 12:11 - Procedures Procedures: Procedures EXCISION OF DESCENDING COLON, ENDO (12/15/21)
[2022-12-19] MEDS ORDERED: ceFAZolin 2 GM in SODIUM CHLORIDE 0.9% 100ML 100 ML IV ONE (17:12)
[2022-12-19] MEDS: PANTOPRAZOLE 40 MG VIAL IV SCH (20:37)
[2022-12-19] MEDS ORDERED: ZOLPIDEM 5 MG TABLET PO SCH (21:00)
[2022-12-20] MEDS: SODIUM CHLORIDE FLUSH 0.9% 10 ML SYRINGE IVP SCH ×2 (03:02→08:49)
[2022-12-20] MEDS: PIPERACILLIN/TAZOBACTAM 3.375 GM in SODIUM CHLORIDE 0.9% MINIBAG 100 ML IV SCH ×2 (04:29→13:21)
[2022-12-20 05:13] LABS: BASOPHILS # (AUTO) 0.1 10^3/uL (0.0-0.1); BASOPHILS % (AUTO) 0.6 %; EOSINOPHILS # (AUTO) 0.3 10^3/uL (0.0-0.7); EOSINOPHILS % (AUTO) 3.7 %; HCT - HEMATOCRIT 41.1 % (42.0-52.0); HGB - HEMOGLOBIN 13.6 g/dL (14.0-18.0); LYMPHOCYTES # (AUTO) 1.3 10^3/uL (1.5-3.5); LYMPHOCYTES % (AUTO) 16.7 %; MEAN CORPUSCULAR HGB CONC 33.1 g/dL (32.0-36.0); MEAN CORPUSCULAR VOLUME 90.7 fL (80.0-94.0); MEAN PLATELET VOLUME 10.4 fL (7.4-11.4); MONOCYTES % (AUTO) 13.3 %; NEUTROPHILS % (AUTO) 64.5 %; PLT - PLATELET COUNT 115 10^3/uL (130-450); RED BLOOD COUNT 4.53 10^6/uL (4.70-6.10); RED CELL DISTRIBUTION WIDTH 13.6 % (12.0-15.0); WHITE BLOOD COUNT 7.8 x10^3/uL (4.8-10.8)
[2022-12-20 05:20] LABS: CALCIUM 8.1 mg/dL (8.5-10.3); CREATININE 0.8 mg/dL (0.6-1.2); POTASSIUM 3.8 mmol/L (3.5-5.0)
[2022-12-20] MEDS: amLODIPine 5 MG TABLET PO SCH (08:45)
[2022-12-20] MEDS: PANTOPRAZOLE 40 MG VIAL IV SCH (08:47)
[2022-12-20] MEDS ORDERED: PANTOPRAZOLE 40 MG VIAL IVP SCH (09:00)
--- NOTE | 2022-12-20 09:13 | PHARMACY PROGRESS NOTE ---
- Best Possible Medication History Admit Date and Time: 12/18/222008 Processed by: Pharmacy Medication History completed: Yes Patient Interview: Completed Secondary Source(s): Insurance records (PT WAS OUT TO [facility] FOR A PROCEDURE YESTERDAY. WAS ABLE TO COMPLETE MEDREC TODAY WITH PT. PT CONGNISANT OF MEDS AND VERY HEALTHY LOOKING.) As the person ultimately responsible for medication therapy, providers are able to order a medication from an existing home medication list in [facility] via the "Reconcile Routine" prior to Confirmation of that medication by information support project manager. Such practice is discouraged except when the physician, in their clinical judgment, deems that a medical need exists for a medication without regard to previous use.
--- NOTE | 2022-12-20 09:28 | ANESTHESIA ---
Pre-Anesthesia VS, & Labs - Diagnosis cholecystitis - Procedure laparoscopic cholecystectomy Vital Signs: Temp Pulse Resp BP Pulse Ox O2 Flow Rate 36.7 C 64 16 136/76 H 97 12/20/22 08:00 12/20/22 08:00 12/20/22 08:00 12/20/22 08:00 12/20/22 08:00 Height: 6 ft Weight (kg): 86.5 kg Body Mass Index: 25.8 BMI Classification: Overweight - NPO >8 hours - Lab Results Current Lab Results: Laboratory Tests 12/20/22 05:01: Sodium 140, Potassium 3.8, Chloride 111, Carbon Dioxide 23, Anion Gap 6.0, BUN 25 H, Creatinine 0.8, Estimated GFR (MDRD) 94, Glucose 108 H, Calcium 8.1 L 12/20/22 05:01: WBC 7.8, RBC 4.53 L, Hgb 13.6 L, Hct 41.1 L, MCV 90.7, MCH 30.0, MCHC 33.1, RDW 13.6, Plt Count 115 L, MPV 10.4, Neut # (Auto) 5.0, Lymph # (Auto) 1.3 L, [place] # (Auto) 1.0, Eos # (Auto) 0.3, Baso # (Auto) 0.1, Absolute Nucleated RBC 0.00, Nucleated RBC % 0.0 12/18/22 10:56: PT 11.9, INR 1.1, APTT 31.0 12/18/22 10:56: Troponin I High Sens 14.1 12/18/22 10:56: Sodium 137, Potassium 4.1, Chloride 104, Carbon Dioxide 24, Anion Gap 9.0, BUN 28 H, Creatinine 1.0, Estimated GFR (MDRD) 73 L, Glucose 118 H, Calcium 9.1, Total Bilirubin 4.0 H, AST 351 H, ALT 235 H, Alkaline Phosphatase 430 H, Total Protein 7.0, Albumin 3.6, Globulin 3.4, Albumin/Globulin Ratio 1.1, Lipase 33 12/18/22 10:56: WBC 7.3, RBC 5.35, Hgb 16.0, Hct 47.9, MCV 89.5, MCH 29.9, MCHC 33.4, RDW 13.7, Plt Count 131, MPV 10.5, Neut # (Auto) 4.8, Lymph # (Auto) 1.0 L , [place] # (Auto) 1.3 H, Eos # (Auto) 0.2, Baso # (Auto) 0.1, Absolute Nucleated RBC 0.00, Nucleated RBC % 0.0 Fish Bones: 12/20/22 05:01 12/20/22 05:01 Home Medications and Allergies Home Medications: Ambulatory Orders Amlodipine Besylate [Norvasc] 10 mg PO DAILY 12/18/22 Multivitamin with Minerals [Multivitamins with Minerals] 1 each PO DAILY 12/20/22 Pravastatin [Pravachol] 40 mg PO HS 12/20/22 traZODone [Desyrel] 50 mg PO HS PRN 12/20/22 Active Medications Amlodipine Besylate (Amlodipine 5 Mg Tablet) 10 mg PO DAILY [facility] Last Admin: 12/20/22 08:45 Dose: 10 mg Sodium Chloride (Normal Saline 0.9%) 1,000 mls @ 100 mls/hr IV .Q10H [facility] Last Admin: 12/19/22 21:37 Dose: 100 mls/hr Piperacillin Sod/Tazobactam (Sod 3.375 gm/ Sodium Chloride) 100 mls @ 25 mls/hr IV Q8H [facility] Last Infusion: 12/20/22 08:50 Dose: Infused Morphine Sulfate (Morphine 2 Mg/Ml Carpuject) 2 mg IVP Q4H PRN PRN Reason: Pain 8 to 10 Nicotine (Nicotine 7 Mg Patch) 1 patch TOP DAILY PRN PRN Reason: Nicotine Craving Ondansetron HCl (Ondansetron 4 Mg/2 Ml Vial) 4 mg IVP Q6HR PRN PRN Reason: Nausea / Vomiting Last Admin: 12/19/22 20:10 Dose: 4 mg Pantoprazole Sodium (Pantoprazole 40 Mg Vial) 40 mg IVP DAILY [facility] Last Admin: 12/20/22 08:58 Dose: 40 mg Sodium Chloride (Sodium Chloride Flush 0.9% 10 Ml Syringe) 10 ml IVP PRN PRN PRN Reason: NEEDED PER PROVIDER ORDERS Last Admin: 12/18/22 21:31 Dose: 10 ml Sodium Chloride (Sodium Chloride Flush 0.9% 10 Ml Syringe) 10 ml IVP 0100,0900,1700 [facility] Last Admin: 12/20/22 08:49 Dose: 10 ml Zolpidem Tartrate (Zolpidem 5 Mg Tablet) 10 mg PO QPM VANNA Last Admin: 12/19/22 21:44 Dose: 10 mg Zolpidem Tartrate [Ambien] 10 mg PO DAILY 12/15/21 Amlodipine Besylate [Norvasc] 10 mg PO DAILY 12/18/22 Multivitamin with Minerals [Multivitamins with Minerals] 1 each PO DAILY 12/20/22 Pravastatin [Pravachol] 40 mg PO HS 12/20/22 traZODone [Desyrel] 50 mg PO HS PRN 12/20/22 Allergies/Adverse Reactions: Allergies Allergy/AdvReac Type Severity Reaction Status Date / Time No Known Drug Allergies Allergy Verified 12/18/22 10:38 Anes History & Medical History - Anesthetic History Anesthesia Complications: reports: No previous complications - Medical History Cardiovascular: reports: High cholesterol Pulmonary: reports: None Gastrointestinal: reports: Other (Hep C) Neuro: reports: None Endocrine/Autoimmune: reports: None Smoking Status: Never smoker - Surgical History General: reports: Colonoscopy Orthopedic: reports: Other Exam General: Alert, Oriented x3 Dental: Partials Upper, Partials Lower Mouth Opening: Greater than 4 Fingerbreadths Neck Mobility: Normal Mallampati classification: II Thyromental Distance: greater than 6 cm Respiratory: Lungs clear Cardiovascular: Regular rate Plan Anesthesia Type: General Consent for Procedure(s) Verified and Reviewed: Yes Code Status: Attempt Resuscitation ASA classification: 2-Mild systemic disease Is this case an emergency?: No
[2022-12-20] MEDS ORDERED: BUPIVACAINE 0.5% PF 30 ML VIAL ONE (09:39)
--- NOTE | 2022-12-20 10:16 | PROVIDER PROGRESS NOTE ---
Subjective - General Admit Date: 12/18/22 Procedure Date: 12/20/22 Post Op Days: 0 Procedure Performed: Not yet - Review of Systems Wound/Incisions: positive: Other (None yet.) General: positive: No symptoms HEENT: positive: No symptoms Pulmonary: positive: No symptoms Cardiovascular: positive: No symptoms Gastrointestinal: positive: No symptoms Genitourinary: positive: No symptoms Musculoskeletal: positive: No symptoms Skin: positive: No symptoms Psychiatric: positive: No symptoms Objective - Patient Data Reviewed Vital Signs: Yes Vital Signs: Vital Signs x48h Temp Pulse Resp BP BP Pulse Ox 12/20/22 08:00 36.7 C 64 16 136/76 H 97 12/20/22 04:50 37.1 C 61 16 131/72 H 96 Weight: Weight 12/18/22 12/19/22 12/20/22 23:59 23:59 23:59 Weight (kg) 86.5 kg 86.5 kg Intake & Output: Intake and Output Totals x24h 12/18/22 12/19/22 12/20/22 23:59 23:59 23:59 Intake Total 900 2300 200 Balance 900 2300 200 - Lab Results Lab Results: 12/20/22 05:01 12/20/22 05:01 Other Lab Results: Lab Results x24hrs 12/20/22 12/20/22 Range/Units 05:01 05:01 WBC 7.8 (4.8-10.8) x10^3/uL RBC 4.53 L (4.70-6.10) 10^6/uL Hgb 13.6 L (14.0-18.0) g/dL Hct 41.1 L (42.0-52.0) % MCV 90.7 (80.0-94.0) fL MCH 30.0 (27.0-31.0) pg MCHC 33.1 (32.0-36.0) g/dL RDW 13.6 (12.0-15.0) % Plt Count 115 L (130-450) 10^3/uL MPV 10.4 (7.4-11.4) fL Neut # (Auto) 5.0 (1.5-6.6) 10^3/uL Lymph # (Auto) 1.3 L (1.5-3.5) 10^3/uL [place] # (Auto) 1.0 (0.0-1.0) 10^3/uL Eos # (Auto) 0.3 (0.0-0.7) 10^3/uL Baso # (Auto) 0.1 (0.0-0.1) 10^3/uL Absolute Nucleated RBC 0.00 x10^3/uL Nucleated RBC % 0.0 /100WBC Sodium 140 (135-145) mmol/L Potassium 3.8 (3.5-5.0) mmol/L Chloride 111 (101-111) mmol/L Carbon Dioxide 23 (21-32) mmol/L Anion Gap 6.0 (6-13) BUN 25 H (6-20) mg/dL Creatinine 0.8 (0.6-1.2) mg/dL Estimated GFR (MDRD) 94 (>89) Glucose 108 H (70-100) mg/dL Calcium 8.1 L (8.5-10.3) mg/dL - Current Medications Current Medications: Current Medications Generic Name Dose Route Start Last Admin Trade Name Freq PRN Reason Stop Dose Admin Amlodipine Besylate 10 mg 12/19/22 09:00 12/20/22 08:45 Amlodipine 5 Mg Tablet PO 10 mg DAILY VANNA Administration Sodium Chloride 1,000 mls @ 100 mls/hr 12/18/22 21:00 12/19/22 21:37 Normal Saline 0.9% IV 100 mls/hr .Q10H VANNA Administration Piperacillin Sod/Tazobactam 100 mls @ 25 mls/hr 12/18/22 21:00 12/20/22 08:50 Sod 3.375 gm/ Sodium Chloride IV Infused Q8H VANNA Infusion Ondansetron HCl 4 mg 12/18/22 20:09 12/19/22 20:10 Ondansetron 4 Mg/2 Ml Vial IVP 4 mg Q6HR PRN Administration Nausea / Vomiting Pantoprazole Sodium 40 mg 12/20/22 09:00 12/20/22 08:58 Pantoprazole 40 Mg Vial IVP 40 mg DAILY VANNA Administration Sodium Chloride 10 ml 12/18/22 20:09 12/18/22 21:31 Sodium Chloride Flush 0.9% 10 Ml Syringe IVP 10 ml PRN PRN Administration NEEDED PER PROVIDER ORDERS Sodium Chloride 10 ml 12/19/22 01:00 12/20/22 08:49 Sodium Chloride Flush 0.9% 10 Ml Syringe IVP 10 ml 0100,0900,1700 VANNA Administration Zolpidem Tartrate 10 mg 12/19/22 21:00 12/19/22 21:44 Zolpidem 5 Mg Tablet PO 10 mg QPM VANNA Administration - Physical Exam Wound/Incisions: positive: Other (None yet.) General Appearance: positive: No acute distress Eyes Bilateral: positive: No lid inflammation, Conjunctivae nml, No scleral icterus ENT: positive: No signs of dehydration Neck: positive: Trachea midline Respiratory: positive: Chest non-tender, No respiratory distress, Breath sounds nml Cardiovascular: positive: Regular rate & rhythm, No murmur Abdomen: positive: Nml bowel sounds Skin: positive: Color nml, Warm, Dry Extremities: positive: Nml appearance. negative: Giovanna's sign/cords Neurologic/Psychiatric: positive: Oriented x3, Motor nml, Sensation nml, Mood/affect nml ABX Reporting Has patient been on IV antibiotics over the past 48 hours?: No Impression/Plan - Problem List Problem List: Laparoscopic cholecystectomy, possible open cholecystectomy, possible intraoperative cholangiography, possible common bile duct exploration. The indications, procedure, alternatives including no surgery, and possible complications including but not limited to bleeding requiring transfusion, infection, common bile duct injury, and were fully explained to the patient and all questions answered. His Milagros was in the room and was present for the entire conversation and examination. Assuming the patient does well following surgery the plan would be to send him home today and follow-up with me in 1 week's time. I have asked both he and his to let us know if there is any way we can make his stay at [facility] more c omfortable to please let us know. I also reviewed the results of the ERCP that he had done yesterday which included placement of the stent.
[2022-12-20] MEDS ORDERED: fentaNYL 100 MCG/2 ML VIAL ONE (10:19)
[2022-12-20] MEDS ORDERED: MIDAZOLAM 2 MG/2 ML VIAL ONE (10:19)
[2022-12-20] MEDS ORDERED: PROPOFOL 200 MG/20 ML VIAL IVP ONE (10:20)
[2022-12-20] MEDS ORDERED: NALOXONE 0.4 MG/ML VIAL IVP PRN (10:20)
[2022-12-20] MEDS ORDERED: ePHEDrine 50 MG/ML VIAL IVP PRN (10:20)
[2022-12-20] MEDS ORDERED: fentaNYL 100 MCG/2 ML VIAL IVP PRN (10:20)
[2022-12-20] MEDS ORDERED: MORPHINE 2 MG/ML CARPUJECT IVP PRN (10:20)
[2022-12-20] MEDS ORDERED: ROCURONIUM 50 MG/5 ML VIAL ONE (10:20)
[2022-12-20] MEDS ORDERED: HYDROmorphone 0.5 MG/0.5 ML SYRINGE IVP PRN (10:20)
[2022-12-20] MEDS ORDERED: ONDANSETRON 4 MG/2 ML VIAL IVP PRN (10:20)
[2022-12-20] MEDS ORDERED: ATROPINE ABBOJECT 1 MG/10 ML SYRINGE IVP PRN (10:20)
[2022-12-20] MEDS ORDERED: METOCLOPRAMIDE 10 MG/2 ML VIAL IVP PRN (10:20)
[2022-12-20] MEDS ORDERED: DEXAMETHASONE 4 MG/ML VIAL ONE (10:43)
[2022-12-20] MEDS ORDERED: ONDANSETRON 4 MG/2 ML VIAL ONE (10:43)
[2022-12-20] MEDS ORDERED: ePHEDrine 50 MG/ML VIAL IVP ONE (10:57)
[2022-12-20] MEDS ORDERED: BUPIVACAINE 0.5% PF 30 ML VIAL SUBQ ONE ×2 (10:58→12:05)
[2022-12-20] MEDS ORDERED: LACTATED RINGERS 1,000 ML IV SCH (11:00)
[2022-12-20] MEDS ORDERED: KETOROLAC 30 MG/ML VIAL ONE (11:26)
[2022-12-20] MEDS ORDERED: ACETAMINOPHEN 1,000 MG/100 ML 1,000 MG/100 ML BAG IV ONE (11:26)
[2022-12-20] MEDS ORDERED: LACTATED RINGERS 1,000 ML IV ONE (12:25)
--- NOTE | 2022-12-20 12:54 | OPERATIVE REPORT ---
Operative Report - General Admit Date: 12/18/22 Procedure Date: 12/20/22 Planned Procedure: Laparoscopic cholecystectomy Pre-Op Diagnosis: Symptomatic cholelithiasis and choledocholithiasis Procedure Performed: Laparoscopic cholecystectomy and umbilical herniorrhaphy Post Op Diagnosis: Same - Procedure Note Primary Surgeon: El Kunz MD Anesthesia Provider: Kathie Crawford CRNA Anesthesia Technique: General ET tube, Local (30 mL of half percent Marcaine) IV Fluids (mL): 1,300 Estimated Blood Loss (mL): 10 Drain/Tube Type: Other (None.) Indications: As above. Complications: None. - Other Other Information/Narrative: OAfter verbal and written informed consent was obtained detailing the operation, the alternatives to the operation including no operation, risks of infection, bleeding requiring transfusion with its risks, nerve injury, and and after I met with the patient confirming the surgery, the patient was brought to the operative suite and placed supine on the operating table. Great care was taken to avoid pressure points to prevent pressure necrosis or nerve injury. Monitoring devices were applied along with TEDs and pneumatic compressive stockings (to prevent DVT). The patient received preoperative antibiotics for surgical prophylaxis. Kathie Crawford CRNA sedated and anesthetized the patient for the entire procedure. The patient was prepped and draped in usual sterile manner. A "time in" then confirmed that the patient was identified with 3 identifiers (name, birthdate, and medical record number), the history and physical was in the chart, the signed consent confirming the procedure was in the chart, the patient was in the correct position, the aforementioned prophylactic measures were in place were given, we had the correct personnel and equipment to complete the procedure and that anesthesia, and the surgical team was given an opportunity to express any concerns. With the agreement of everyone in the room, we proceeded with the operation. The initial incision was at the umbilicus and dissection to the incidentally found umbilical hernia was completed using sharp and blunt dissection. The hernia sac was dissected off of the posterior skin of the umbilicus sharply. This was incised gaining entry into the abdomen. Through the fascial defect was placed a 12 mm blunt tipped, balloon tipped port was placed and the balloon was inflated to keep the port in position. The abdominal cavity was insufflated with carbon dioxide to a steady-state pressure of 12 mmHg. 3 additional 5 mm ports were placed in standard locations for laparoscopic cholecystectomy (subxiphoid and 2 right subcostal) under direct vision of the 30 degree laparoscope and without incident. The patient was then placed in reverse Trendelenburg position and was rotated slightly to their left. The gallbladder fundus was grasped with an atraumatic grasper. Multiple adhesions had to be taken down by blunt and sharp dissection along with electrocautery. The patient's fourth lobe of the liver was prominent and obscured the angle of Asif and as such the gallbladder was taken down in a slightly top-down manner in order to free up the gallbladder so that we could pull up the angle of Calot up above this lobe of the liver and provide adequate visualization. This also necessitated placement of the camera in other ports as needed to see everything appropriately. Eventually, I identified the infundibulum and this was then grasped and retracted superiorly and laterally. Dissection was then begun at the angle of Calot. The cystic duct and (slightly medially and posteriorly), cystic artery were clearly identified. The critical view was obtained and a photograph taken. 2 clips proximally and one clip distally were used to control both the cystic duct and cystic artery. The clips were carefully placed to avoid occluding the juncture with the common bile duct. Both the cystic duct and then the cystic artery were then transected with laparoscopic mahsa. Intraoperative cholangiogram was not obtained as the patient had an ERCP done yesterday, the anatomy was very straightforward, and t he patient had the common bile duct cleared and a stent placed as portion of his ERCP. The gallbladder was then removed from its fossa in a retrograde manner using electrocautery. With the 30 degree 5 mm scope in the subxiphoid position, the gallbladder was placed in an Endo Catch bag to be extracted through the 12 mm port site. I irrigated the right upper quadrant with liter of warm sterile saline and the area was aspirated dry. I inspected the gallbladder fossa and there was no bleeding or bile leak. Clips on the cystic duct and cystic artery appeared to be secure. I briefly visually explored the abdomen. There was no other evidence of overt pathology. I injected the port sites at the peritoneal, fascial, and skin levels under direct vision with 0.5% Marcaine. All ports and the Endo Catch containing the gallbladder were removed. Following gallbladder removal, the remaining carbon dioxide was expelled from the abdomen. The fascia the umbilicus was approximated using 2 [id number] 0 Vicryl sutures thus repairing the umbilical hernia. The posterior aspect of the umbilicus was then sewn down to the fascia using a 4-0 Monocryl thus giving the patient a "innie." The skin at each port site was approximated using a subcuticular 4-0 Monocryl. The skin was prepped with benzoin and Steri-Strips were applied. At this point a "timeout" was performed that confirmed that all counts were correct, the procedure that was performed, the blood loss, the IV fluids administered, the patient's condition and any concerns of the operating team had. Dressings were then applied. Having tolerated the procedure well, the patient was extubated and taken to recovery room in good and stable condition. The plan is for outpatient discharge when the patient is adequately recovered. CPT laparoscopic cholecystectomy 48100 CPT umbilical herniorrhaphy 16195 This document was created in part using voice recognition technology. Because of the inherent limitations of the system, occasional same sounding word substitutions and grammatical errors do occur and persist despite proofreading. Please read this document for context.
--- NOTE | 2022-12-20 13:09 | DISCHARGE SUMMARY ---
"Discharge Summary Admit Date: 12/18/22 Discharge Date: 12/20/22 Discharging Provider: El Kunz MD Code Status: Attempt Resuscitation Condition at Discharge: Good Discharge Disposition: 01 Home, Self Care - DIAGNOSES Admission Diagnoses: Symptomatic cholelithiasis and choledocholithiasis Discharge Diagnoses with Status of Each Condition: The choledocholithiasis was addressed by [facility] via an ERCP and stent placement, the cholelithiasis was addressed by me just now with a laparoscopic cholecystectomy, incidentally found umbilical hernia was also repaired as a portion of the laparoscopic cholecystectomy operation. - HPI History of Present Illness: Patient is a very pleasant 77-year-old gentleman who presented with a several week history of recurrent right upper quadrant abdominal pain. This was quickly diagnosed as cholelithiasis and choledocholithiasis. - CONSULTS | PROCEDURES Consultations: Consultations included a surgical consultation to me Dr. El Kunz as w Procedures: ERCP with clearance of common bile duct and placement of stones performed at [facility] and the patient returned for a laparoscopic cholecystectomy and umbilical herniorrhaphy with me today - ALLERGIES Allergies/Adverse Reactions: Allergies Allergy/AdvReac Type Severity Reaction Status Date / Time No Known Drug Allergies Allergy Verified 12/18/22 10:38 - MEDICATIONS Home Medications: Ambulatory Orders Medication Instructions Recorded Confirmed Zolpidem Tartrate [Ambien] 10 mg PO DAILY 12/15/21 12/18/22 Amlodipine Besylate [Norvasc] 10 mg PO DAILY 12/18/22 12/18/22 Multivitamin with Minerals 1 each PO DAILY 12/20/22 12/20/22 [Multivitamins with Minerals] Pravastatin [Pravachol] 40 mg PO HS 12/20/22 12/20/22 traZODone [Desyrel] 50 mg PO HS PRN 12/20/22 12/20/22 - PHYSICAL EXAM AT DISCHARGE General Appearance: positive: No acute distress Eyes Bilateral: positive: No lid inflammation, Conjunctivae nml, No scleral icterus ENT: positive: No signs of dehydration Neck: positive: Trachea midline Respiratory: positive: Chest non-tender, No respiratory distress, Breath sounds nml Cardiovascular: positive: Regular rate & rhythm, No murmur Abdomen: positive: Nml bowel sounds, Tenderness (Consistent with just performed surgery.) Skin: positive: Color nml, Warm, Dry Extremities: positive: Non-tender, Nml appearance. negative: Giovanna's sign/cords Neurologic/Psychiatric: positive: Oriented x3, Motor nml, Sensation nml, Mood/affect nml - LABS Result Diagrams: 12/20/22 05:01 12/20/22 05:01 - QUALITY (Female Hip Fx Only) Was patient sent home on osteoporosis medication?: No - FOLLOW UP Follow Up: [facility] [address] [place] [address] 1 week Primary care physician as needed - TIME SPENT Time Spent in Discharge (Minutes): 30"
--- NOTE | 2022-12-20 13:16 | Discharge Plan ---
Discharge Plan Problem Reviewed?: Yes Disposition: Home, Self Care Condition: Good Diet: Regular Shower Restrictions: No Driving Restrictions: Yes (Not while on pain medication) Assistance Devices: Other (None) Weight Bearing: Full Weight Assessment: Doing well following ERCP followed by laparoscopic cholecystectomy and umbilical herniorrhaphy No Smoking: If you smoke, Please STOP! Call for help. Follow-up with: Brandon Monroy MD [Primary Care Provider] - El Kunz MD [Provider Admit Priv/Credential] -
[2022-12-20] MEDS: SODIUM CHLORIDE 0.9% 1,000 ML IV SCH (13:21)
[2022-12-20 15:14] VITALS: BP 143/81
[2022-12-21 10:09] LABS: HBsAG SCREEN Negative (Negative); HCV AB Reactive (Non Reactive); HCV IU/ML HCV Not Detected IU/mL (.); HEPATITIS B CORE IGM AB Negative (Negative)
== END 2022-12-20 15:26 | disposition home or self-care (01) | DRG 419 ==
LOC: ED 10:18 → MS3 20:09
PROVIDERS: ADMIT Internal Medicine; ATTEND Surgery
PROC: 0F798DZ Dilation of Common Bile Duct with Intraluminal Device, Via Natural or Artificial Opening Endoscopic (ICD-10-PCS; 2022-12-19)
PROC: 0FT44ZZ Resection of Gallbladder, Percutaneous Endoscopic Approach (ICD-10-PCS; principal; 2022-12-20 10:30)
DX: K80.71 Calculus of gallbladder and bile duct without cholecystitis with obstruction (principal); R79.89 Other specified abnormal findings of blood chemistry; Z20.822 Contact with and (suspected) exposure to COVID-19; K80.63 Calculus of gallbladder and bile duct with acute cholecystitis with obstruction; E80.6 Other disorders of bilirubin metabolism; E78.5 Hyperlipidemia, unspecified; G47.00 Insomnia, unspecified; K42.9 Umbilical hernia without obstruction or gangrene; F32.A Depression, unspecified; F41.9 Anxiety disorder, unspecified
CPT/HCPCS: 36415; 71045; 74183; 76705; 80048; 80053; 83690; 84484; 85025; 85610; 85730; 86705; 86709; 86803; 87340; 87522; 87633; 93005; 96365; 99285; 99406; A9270; A9585; J0131; J7120

== ENCOUNTER 2022-12-19 13:23 | Outpatient (CLI) | payer MEDICARE | END 2022-12-19 23:59 | disposition short-term general hospital (02) | LOC: EMS 13:23 | PROVIDERS: ATTEND Internal Medicine | DX: K80.10 Calculus of gallbladder with chronic cholecystitis without obstruction (principal) | CPT/HCPCS: A0425; A0426 ==

== ENCOUNTER 2023-03-03 19:23 | Day surgery (SDC) | payer MEDICARE ==
[2023-03-03] MEDS ORDERED: SODIUM CHLORIDE 0.9% 1,000 ML IV STA (19:45)
--- NOTE | 2023-03-03 19:59 | ED Physician Documentation ---
History of Present Illness - Stated complaint Stated Complaint: ABD PX - Chief complaint Chief Complaint: Abd Pain - Additonal information Additional information: Patient is 77-year-old male with past medical significant for cholecystectomy performed 12/20/2022 as well as hepatitis C, depression, anxiety presenting to the emergency department with chief complaint of abdominal pain. Reports right lower quadrant abdominal pain that began at 3 AM this morning. Associated with nausea but no vomiting. Denies diarrhea or constipation. Does report feeling cold but denies fever or shaking chills. Current medications include Norvasc, Lipitor, zolpidem. Last p.o. intake was 4 hours ago. Review of Systems Constitutional: denies: Fever Eyes: denies: Loss of vision Ears: denies: Loss of hearing Nose: denies: Rhinorrhea / runny nose Throat: denies: Dental pain / toothache Cardiac: denies: Chest pain / pressure GI: reports: Abdominal Pain, Nausea. denies: Vomiting, Constipation, Diarrhea : denies: Dysuria Skin: denies: Rash Musculoskeletal: denies: Neck pain PD PAST MEDICAL HISTORY - Past Medical History Cardiovascular: High cholesterol Respiratory: None Neuro: None Endocrine/Autoimmune: None GI: Other (Hep C) Psych: Depression, Anxiety - Past Surgical History General: Colonoscopy Ortho: Other - Present Medications Home Medications: Ambulatory Orders Medication Instructions Recorded Confirmed Zolpidem Tartrate [Ambien] 10 mg PO DAILY 12/15/21 12/18/22 Amlodipine Besylate [Norvasc] 10 mg PO DAILY 12/18/22 12/18/22 Docusate Sodium 250Mg Capsule 250 mg PO DAILY #10 cap 12/20/22 [Colace 250Mg Capsule] HYDROcod/ACETAM 5/325 [[place] 5/325] 1 each PO Q4H PRN #12 tablet 12/20/22 Multivitamin with Minerals 1 each PO DAILY 12/20/22 12/20/22 [Multivitamins with Minerals] Pravastatin [Pravachol] 40 mg PO HS 12/20/22 12/20/22 traZODone [Desyrel] 50 mg PO HS PRN 12/20/22 12/20/22 - Allergies Allergies/Adverse Reactions: Allergies Allergy/AdvReac Type Severity Reaction Status Date / Time No Known Drug Allergies Allergy Verified 03/03/23 19:28 - Social History Does the pt smoke?: No Smoking Status: Never smoker PD ED PE NORMAL - Vitals Vital signs reviewed: Yes - General General: Alert and oriented X 3, No acute distress, Well developed/nourished - HEENT HEENT: Atraumatic, PERRL, EOMI, Ears normal, Moist mucous membranes, Pharynx benign - Neck Neck: Supple, no meningeal sign, No bony TTP, No adenopathy, Thyroid normal, No JVD, No bruit - Cardiac Cardiac: RRR, No gallop, Strong equal pulses - Respiratory Respiratory: No respiratory distress, Clear bilaterally - Abdomen Abdomen: Other (Right lower quadrant tenderness and guarding.) - Male Male : Deferred - Rectal Rectal: Deferred - Back Back: No CVA TTP - Derm Derm: Normal color - Extremities Extremities: No deformity - Neuro Neuro: Alert and oriented X 3, 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, No motor deficit, No sensory deficit, Normal speech Results - Vitals Vitals: Vital Signs - 24 hr 03/03/23 03/03/23 03/03/23 19:28 22:08 23:12 Temperature 36.5 C 36.5 C Heart Rate 100 95 95 Respiratory 16 18 18 Rate Blood Pressure 146/83 H 142/82 H 142/82 H O2 Saturation 100 99 99 Oxygen O2 Source Room air - Labs Labs: Laboratory Tests 03/03/23 03/03/23 03/03/23 19:54 19:54 19:54 WBC 10.6 RBC 5.13 Hgb 15.5 Hct 46.1 MCV 89.9 MCH 30.2 MCHC 33.6 RDW 13.0 Plt Count 108 L MPV 10.2 Neut # (Auto) 8.5 H Lymph # (Auto) 0.9 L [place] # (Auto) 1.1 H Eos # (Auto) 0.1 Baso # (Auto) 0.1 Absolute Nucleated RBC 0.00 Nucleated RBC % 0.0 Sodium 138 Potassium 4.0 Chloride 105 Carbon Dioxide 27 Anion Gap 6.0 BUN 19 Creatinine 1.0 Estimated GFR (MDRD) 73 L Glucose 109 H Lactic Acid 1.0 Calcium 9.0 Total Bilirubin 0.9 AST 31 ALT 25 Alkaline Phosphatase 97 Total Protein 7.3 Albumin 4.4 Globulin 2.9 Albumin/Globulin Ratio 1.5 Lipase 31 PD Medical Decision Making - ED course Complexity details: reviewed results, d/w patient, d/w advertising consultant ED course: Patient is 77-year-old male presenting to the emergency department with right lower quadrant abdominal pain. Afebrile, hematin stable on arrival to the emergency department. Physical exam demonstrates right lower quadrant tenderness with guarding without rebound, rigidity. Initial differential diagnosis included but not limited to gastritis, gastroenteritis, colitis, acute appendicitis, nephrolithiasis. Patient offered medication for pain control in the emergency department which was declined. Labs obtained all generally within normal limits or nonactionable. CT of the abdomen pelvis however demonstrates obvious fecalith with inflamed appendix and possible microperforation. Patient started on Rocephin and Flagyl in the emergency department. Case discussed with Dr. Vasquez, general surgery. Dr. Vasquez evaluated the patient independently at bedside and graciously agrees to admit him to her service. Departure - Departure Disposition: [facility] DC/Xfer Clinical Impression: Acute appendicitis Qualifiers: Acute appendicitis type: unspecified acute appendicitis type Qualified Code(s): K35.80 - Unspecified acute appendicitis
[2023-03-03 20:00] LABS: BASOPHILS # (AUTO) 0.1 10^3/uL (0.0-0.1); BASOPHILS % (AUTO) 0.5 %; EOSINOPHILS # (AUTO) 0.1 10^3/uL (0.0-0.7); EOSINOPHILS % (AUTO) 0.9 %; HCT - HEMATOCRIT 46.1 % (42.0-52.0); HGB - HEMOGLOBIN 15.5 g/dL (14.0-18.0); LYMPHOCYTES # (AUTO) 0.9 10^3/uL (1.5-3.5); MEAN CORPUSCULAR HEMOGLOBIN 30.2 pg (27.0-31.0); MEAN CORPUSCULAR HGB CONC 33.6 g/dL (32.0-36.0); MEAN CORPUSCULAR VOLUME 89.9 fL (80.0-94.0); MEAN PLATELET VOLUME 10.2 fL (7.4-11.4); MONOCYTES # (AUTO) 1.1 10^3/uL (0.0-1.0); MONOCYTES % (AUTO) 10.7 %; NEUTROPHILS # (AUTO) 8.5 10^3/uL (1.5-6.6); NEUTROPHILS % (AUTO) 79.7 %; PLT - PLATELET COUNT 108 10^3/uL (130-450); RED BLOOD COUNT 5.13 10^6/uL (4.70-6.10); WHITE BLOOD COUNT 10.6 x10^3/uL (4.8-10.8)
[2023-03-03 20:13] LABS: ALBUMIN 4.4 g/dL (3.2-5.5); ALBUMIN/GLOBULIN RATIO 1.5 (1.0-2.2); BILIRUBIN,TOTAL 0.9 mg/dL (0.2-1.0); TOTAL PROTEIN 7.3 g/dL (6.7-8.2)
[2023-03-03] MEDS ORDERED: cefTRIAXone 1 GM VIAL IVP STA (21:53)
--- NOTE | 2023-03-03 21:57 | CT Report ---
PROCEDURE: ABDOMEN/PELVIS W INDICATIONS: RLQ abd pain CONTRAST: 100 ML OMNI 350 TECHNIQUE: After the administration of intravenous contrast, 5 mm thick sections acquired from the diaphragms to the symphysis. 5 mm thick coronal and sagittal reformats were acquired. For radiation dose reducti on, the following was used: automated exposure control, adjustment of mA and/or kV according to kimberly ent size. COMPARISON: None. FINDINGS: Image quality: Excellent. Lung bases:There is minimal dependent atelectasis. Heart: Heart is normal in size. ABDOMEN: Liver: No mass lesion. There is a small amount of pneumobilia. Gallbladder:Surgically absent. Biliary ducts: No biliary ductal dilatation. There is a stent within the distal common bile duct. Pancreas: Unremarkable. Spleen: Normal in size. There are foci of calcifications consistent with sequelae of old granulomato us disease. Adrenal Glands: No adrenal nodules. Kidneys and Ureters: No hydronephrosis. Stomach and Bowel: Stomach, small bowel loops, and colon are normal in caliber and wall thickness. T he appendix is distended, measuring up to 1.0 cm with wall enhancement and mild thickening. There is associated peritendinous or fat stranding and a small amount of adjacent free fluid. Findings are con sistent with acute appendicitis. There is an associated small appendicolith at the base of the append ix. No associated abscess collection. No free air. Ventral Wall: No hernia. Abdominal Nodes: No retroperitoneal or mesenteric adenopathy by size criteria. Vessels: Aorta and inferior vena cava are normal in size. PELVIS: Pelvic Organs:There is moderate heterogeneous enlargement of the prostate. Bladder: Unremarkable. Pelvic Nodes: No enlarged lymph nodes. Miscellaneous: No inguinal hernias. Bones: Visualized osseous structures demonstrate no suspicious lesions. IMPRESSION: 1. Acute appendicitis with an associated appendicolith. A small amount of adjacent free fluid is susp icious for perforation. No free air or discrete abscess identified. Findings discussed Dr. Hannah on 03/03/2023 at 9:51 PM. Reviewed by: Moose Bird MD on 03/03/2023 9:55 PM PDT Approved by: Moose Bird MD on 03/03/2023 9:55 PM PDT Station ID: [id number]
[2023-03-03] MEDS ORDERED: MORPHINE 2 MG/ML CARPUJECT IVP PRN (23:03)
--- NOTE | 2023-03-03 23:07 | SURGERY HX AND PHYSICAL(T) ---
Surgical History & Physical - Chief Complaint/HPI Chief Complaint: abdominal pain History of Present Illness: This is a very pleasant 77-year-old gentleman who awoke from sleep at 3 AM this morning with acute onset abdominal pain. Initially his pain felt like "a stomach ache" and was difficult to localize. Throughout the day, it has migrated to the right lower quadrant and become worse. He describes the pain as sharp in nature. He has declined pain medication and states that he is more comfortable if he lies still and does not push on the area. His pain is associated with nausea but no vomiting. He denies any fevers, chills, constipation, or diarrhea. He had a normal bowel movement this morning. He has never had pain quite like this in the past, though he did have choledocholithiasis about 2 months ago requiring an ERCP and laparoscopic cholecystectomy. He is up-to-date on his colonoscopy.He has no known family history of inflammatory bowel disease or colon cancer. 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[facility] [place] - Home Meds and Allergies Home Medications: Zolpidem Tartrate [Ambien] 10 mg PO DAILY 12/15/21 Amlodipine Besylate [Norvasc] 10 mg PO DAILY 12/18/22 Multivitamin with Minerals [Multivitamins with Minerals] 1 each PO DAILY 12/20/22 Pravastatin [Pravachol] 40 mg PO HS 12/20/22 traZODone [Desyrel] 50 mg PO HS PRN 12/20/22 Allergies/Adverse Reactions: Allergies Allergy/AdvReac Type Severity Reaction Status Date / Time No Known Drug Allergies Allergy Verified 03/03/23 19:28 - Review of Systems Constitutional: Other (A complete 10 point review of symptoms is otherwise negative except for that noted in HPI and PMH.) - Vital Signs Heart Rate: 95 Blood Pressure: 142/82 Temperature: 36.5 C Respiratory Rate: 18 O2 Saturation: 99 Weight (kg): 87.1 kg Height: 1.8 m - Physical Exam Comments/Other: GEN: No acute distress, appears younger stated age, alert and oriented HEENT: NCAT, MMM, EOMI NEURO: CN II-XII grossly intact, no obvious focal deficits CV: RRR PULM: Nonlabored, on room air ABD: soft, with moderate point tenderness in the right lower quadrant, otherwise nontender, no rebound or guarding, negative Rovsing sign, negative psoas sign CIRCULATORY: no clubbing, cyanosis, or edema SKIN: no lesions appreciated LYMPH: no obvious lymphadenopathy MSK: 4/4 strength in all extremities PSYCH: Affect is appropriate - Patient Review Patient Review: Problems were reviewed with the patient during this visit. Medications were reviewed with the patient during this visit. Allergies were reviewed this patient during this visit. Pertinent Tests Reviewed: All pertitent test for this patient were reviewed. - Assessment & Plan Assessment and Plan: This is a 77-year-old gentleman with: 1. Acute appendicitis Physical exam, history, laboratory studies, and imaging are consistent with acute appendicitis. I personally reviewed and interpreted the patient's CT scan performed tonight. He has a small fecalith and an inflamed appendix with a small amount of fluid around the appendix. Do not definitive sign of perforation. I discussed the natural history of acute appendicitis with the patient. We also discussed the risks, benefits, and alternatives of laparoscopic appendectomy including the the use of antibiotics alone. Risks discussed include bleeding, infection, damage to surrounding structures, and the need for further surgeries or procedures. We discussed the intraoperative and postoperative plan. The patient and voiced understanding, his questions were answered, and he wish to proceed with surgery. A consent was signed by the rocky monge. -IV pain, and nausea medication as well as IV antibiotics have been ordered. Postoperative antibiotic plan pending intraoperative findings -Plan for urgent laparoscopic appendectomy tomorrow morning. -I anticipate the patient will be able to discharge home tomorrow after surgery. 2. Remote history of hepatitis C, hypertension, hyperlipidemia -Hepatitis C has been treated, I will continue the patient's home medications once they have been reconciled.
[2023-03-03] MEDS ORDERED: ACETAMINOPHEN 500 MG TABLET PO PRN (23:12)
[2023-03-03] MEDS ORDERED: SODIUM CHLORIDE 0.9% 1,000 ML IV SCH (23:45)
[2023-03-03] MEDS ORDERED: cefTRIAXone 1 GM in SODIUM CHLORIDE 0.9% MINIBAG 100 ML IV SCH (23:45)
[2023-03-03] MEDS ORDERED: metroNIDAZOLE 500 MG/100 ML 500 MG/100 ML BAG IV SCH (23:45)
[2023-03-04] MEDS: ONDANSETRON 4 MG/2 ML VIAL IVP PRN ×2 (00:01→05:45)
[2023-03-04] MEDS ORDERED: PROPOFOL 200 MG/20 ML VIAL IVP ONE (07:26)
[2023-03-04] MEDS ORDERED: LIDOCAINE-PF 2% 10 ML AMP SUBQ ONE (07:26)
[2023-03-04] MEDS ORDERED: ROCURONIUM 50 MG/5 ML VIAL ONE (07:27)
[2023-03-04] MEDS ORDERED: ONDANSETRON 4 MG/2 ML VIAL ONE (07:27)
[2023-03-04] MEDS ORDERED: fentaNYL 100 MCG/2 ML VIAL ONE (07:27)
--- NOTE | 2023-03-04 07:27 | ANESTHESIA ---
Pre-Anesthesia VS, & Labs - Diagnosis acute appendicitis - Procedure laparoscopic appendectomy Vital Signs: Temp Pulse Resp BP Pulse Ox O2 Flow Rate 37.2 C 95 16 144/86 H 96 03/04/23 05:39 03/04/23 05:39 03/04/23 05:39 03/04/23 05:39 03/04/23 05:39 Height: 5 ft 11 in Weight (kg): 87.1 kg Body Mass Index: 26.7 BMI Classification: Overweight - NPO >8 hours - Lab Results Current Lab Results: Laboratory Tests 03/03/23 19:54: Lactic Acid 1.0 03/03/23 19:54: Sodium 138, Potassium 4.0, Chloride 105, Carbon Dioxide 27, Anion Gap 6.0, BUN 19, Creatinine 1.0, Estimated GFR (MDRD) 73 L, Glucose 109 H, Calcium 9.0, Total Bilirubin 0.9, AST 31, ALT 25, Alkaline Phosphatase 97, Total Protein 7.3, Albumin 4.4, Globulin 2.9, Albumin/Globulin Ratio 1.5, Lipase 31 03/03/23 19:54: WBC 10.6, RBC 5.13, Hgb 15.5, Hct 46.1, MCV 89.9, MCH 30.2, MCHC 33.6, RDW 13.0, Plt Count 108 L, MPV 10.2, Neut # (Auto) 8.5 H, Lymph # (Auto) 0.9 L, [place] # (Auto) 1.1 H, Eos # (Auto) 0.1, Baso # (Auto) 0.1, Absolute Nucleated RBC 0.00, Nucleated RBC % 0.0 Lab results reviewed: Yes Fish Bones: 03/03/23 19:54 03/03/23 19:54 Home Medications and Allergies Active Medications Acetaminophen (Acetaminophen 500 Mg Tablet) 500 mg PO Q4HR PRN PRN Reason: Pain or Fever > 38C (100.4F) Last Admin: 03/03/23 23:54 Dose: 500 mg Cefazolin Sodium (Cefazolin 2 Gm Vial) 2 gm IVP ONCE ONE Stop: 03/04/23 08:01 Sodium Chloride (Normal Saline 0.9%) 1,000 mls @ 125 mls/hr IV .Q8H VANNA Last Admin: 03/03/23 23:58 Dose: 125 mls/hr Metronidazole (Flagyl 500 Mg/100 Ml) 500 mg in 100 mls @ 100 mls/hr IV Q8H VANNA Last Infusion: 03/04/23 05:08 Dose: Infused Morphine Sulfate (Morphine 2 Mg/Ml Carpuject) 4 mg IVP Q2HR PRN PRN Reason: PAIN >8 Last Admin: 03/04/23 05:37 Dose: 4 mg Ondansetron HCl (Ondansetron 4 Mg/2 Ml Vial) 4 mg IVP Q6HR PRN PRN Reason: Nausea / Vomiting Last Admin: 03/04/23 05:45 Dose: 4 mg Zolpidem Tartrate [Ambien] 10 mg PO DAILY 12/15/21 Amlodipine Besylate [Norvasc] 10 mg PO DAILY 12/18/22 Multivitamin with Minerals [Multivitamins with Minerals] 1 each PO DAILY 12/20/22 Pravastatin [Pravachol] 40 mg PO HS 12/20/22 traZODone [Desyrel] 50 mg PO HS PRN 12/20/22 Allergies/Adverse Reactions: Allergies Allergy/AdvReac Type Severity Reaction Status Date / Time No Known Drug Allergies Allergy Verified 03/03/23 19:28 Anes History & Medical History - Anesthetic History Anesthesia Complications: reports: No previous complications Family history of Anesthesia Complications: Denies Family history of Malignant Hyperthermia: Denies - Medical History Cardiovascular: reports: High cholesterol Pulmonary: reports: None Gastrointestinal: reports: Other (Hep C) Neuro: reports: None Endocrine/Autoimmune: reports: None Smoking Status: Never smoker History of Cancer?: No - Surgical History General: reports: Cholecystectomy, Colonoscopy Orthopedic: reports: Other Exam General: Alert, Oriented x3, Cooperative Dental: Dentures full Upper, Dentures full Lower Mouth Openin Fingerbreadth Neck Mobility: Normal Mallampati classification: II Thyromental Distance: 4-6 cm Respiratory: Lungs clear, Normal breath sounds, No respiratory distress Cardiovascular: Regular rate Neurological: Normal speech Mental/Cognitive Status: Alert/Oriented X3, Normal for patient Cognitive Status: Within normal limits Plan Anesthesia Type: General Consent for Procedure(s) Verified and Reviewed: Yes Code Status: Attempt Resuscitation ASA classification: 2-Mild systemic disease Is this case an emergency?: Yes
[2023-03-04] MEDS ORDERED: BUPIVACAINE 0.25% PF 30 ML VIAL ONE (07:29)
[2023-03-04] MEDS ORDERED: LIDOCAINE 1%-EPI 1:100000 20 ML MDV ONE (07:29)
[2023-03-04] MEDS ORDERED: ATROPINE ABBOJECT 1 MG/10 ML SYRINGE IVP PRN ×2 (07:35→09:35)
[2023-03-04] MEDS ORDERED: ePHEDrine 50 MG/ML VIAL IVP PRN ×2 (07:35→09:35)
[2023-03-04] MEDS ORDERED: HYDROmorphone 0.5 MG/0.5 ML SYRINGE IVP PRN ×3 (07:35→09:35)
[2023-03-04] MEDS ORDERED: ONDANSETRON 4 MG/2 ML VIAL IVP PRN ×3 (07:35→09:35)
[2023-03-04] MEDS ORDERED: METOCLOPRAMIDE 10 MG/2 ML VIAL IVP PRN ×2 (07:35→09:35)
[2023-03-04] MEDS ORDERED: fentaNYL 100 MCG/2 ML VIAL IVP PRN ×2 (07:35→09:35)
[2023-03-04] MEDS ORDERED: MORPHINE 2 MG/ML CARPUJECT IVP PRN ×2 (07:35→09:35)
[2023-03-04] MEDS ORDERED: NALOXONE 0.4 MG/ML VIAL IVP PRN ×2 (07:35→09:35)
[2023-03-04] MEDS ORDERED: ceFAZolin 2 GM VIAL IVP ONE (08:00)
[2023-03-04] MEDS ORDERED: LACTATED RINGERS 1,000 ML IV SCH ×2 (08:00→09:35)
[2023-03-04] MEDS ORDERED: MIDAZOLAM 2 MG/2 ML VIAL ONE (08:04)
[2023-03-04] MEDS ORDERED: LIDOCAINE MPF 2%-EPI 1:200000 20 ML VIAL SUBQ ONE (08:30)
[2023-03-04] MEDS ORDERED: BUPIVACAINE 0.25% PF 30 ML VIAL SUBQ ONE (08:30)
[2023-03-04] MEDS ORDERED: KETOROLAC 30 MG/ML VIAL ONE (09:07)
[2023-03-04] MEDS ORDERED: SUGAMMADEX 200 MG/2 ML VIAL IVP ONE (09:12)
[2023-03-04] MEDS ORDERED: oxyCODONE 5 MG TABLET PO PRN (09:14)
[2023-03-04] MEDS ORDERED: LACTATED RINGERS 1,000 ML IV ONE (09:19)
--- NOTE | 2023-03-04 09:19 | OPERATIVE REPORT ---
Operative Report - General Procedure Date: 03/04/23 Planned Procedure: Laparoscopic appendectomy Pre-Op Diagnosis: Acute appendicitis Procedure Performed: Laparoscopic appendectomy Post Op Diagnosis: Acute appendicitis with microperforation and gangrene - Procedure Note Primary Surgeon: Dr. Sowmya Flowers Secondary Surgeon: None Anesthesia Provider: Tessie Young CRNA Anesthesia Technique: General ET tube, Local Pathology: Appendix and contents, sent to pathology Estimated Blood Loss (mL): 5 Indications: The patient has a 1 day history of abdominal pain that migrated to his right lower quadrant. CT scan, laboratory studies, physical exam, and history are consistent with acute appendicitis. The patient was seen and evaluated in the emergency department. We discussed the risks, benefits, and alternatives of la paroscopic appendectomy. Risks include but are not limited to bleeding, infection, damage to surrounding structures, and the need for further surgeries or procedures. We also discussed the intraoperative and postoperative plan. The patient voiced understanding, his questions were answered, and he wished to proceed. A consent was signed by the patient prior to surgery. Findings: 1.Acute, gangrenous, microperforated appendicitis 2. small amount of purulent fluid in the pelvis Complications: None - Other Other Information/Narrative: The patient was brought to the operative suite and placed in the supine position. General endotrachealanesthesia was induced. A Shell catheter was placed. Preoperative antibiotics were given. A preop surgical timeout was performed. Local anesthetic was injected into the skin and subcutaneous tissues just superior to the umbilicus. An 11 blade scalpel was used to make a 5 mm transverse skin incision in this location, utilizing the patient's previous surgical scar. Next, a hemostat was used to spread the tissues down to the level of the fascia and a Nahomy clamp was used to grasp and elevate the umbilical stalk. A Varess needle was used to gain access to the peritoneal space. Low flow insufflation revealed low pressures and then high flow insufflation was undertaken to 15 mmHg. Next, the Varess needle was removed and a 5 mm laparoscopic port was inserted in this location. Through this port, a 5 mm 30 degree laparoscope was inserted using Optiview technique. On inspection of the abdomen no injury was caused on entry. Next, the patient was placed in Trendelenburg and rotated slightly to the left. 2 more ports were inserted. A 5 mm port was inserted in the suprapubic region, and a 12 mm port was inserted in the left lower quadrant. Both ports were placed by first anesthetizing the skin and subcutaneous tissues with local anesthetic, then by making an appropriate length incision with an 11 blade scalpel, and finally by placing the port under direct laparoscopic vision. Once the ports were in place, 2 atraumatic graspers were used to identify the area of concern. The appendix, terminal ileum, and cecum were identified. There was moderate inflammation and the appendix appeared to be gangrenous. Gentle dissection with an atraumatic grasper was used to free the lateral attachments of the retroperitoneal appendix and mesoappendix. A window was made at the base of the appendix in the mesoappendix using blunt dissection.Then, the base of the appendix was divided with a laparoscopic 45 mm stapler, using a blue load. Great care was taken to ensure that only the base of the appendix was within the jaws of the stapler and then it was fired. Then, the harmonic scalpel was used to divide the mesoappendix taking great care to stay close to the appendix during this process. The staple line was inspected and noted to be hemostatic. Next, the appendix was placed in an Endo Catch bag and removed through the left lower quadrant port. The left lower quadrant port was then reinserted. Again, hemostasis was confirmed. A small amount of purulent fluid was noted in the pelvis and this was suctioned free. No irrigation was used. Next, a laparoscopic fascial closure device was used to place a single, interrupted 0 Vicryl suture at the left lower quadrant port. This reapproximated the fascia well. The remaining ports were removed under direct laparoscopic vision and the abdomen was deflated. Next, the skin edges were reapproximated with 4-0 Monocryl in an interrupted subcuticular fashion. A sterile dressing of skin glue was placed. The Shell catheter was removed at the end of the case. The patient was extubated in the operating room and transferred to the recovery room in stable condition. There were no complications.
--- NOTE | 2023-03-04 10:45 | ANESTHESIA POST OP EVALUATION ---
Anesthesia Post Eval - Post Anesthesia Eval Vitals: Last Vital Signs Temp 37.5 C 03/04/23 10:10 Pulse 104 H 03/04/23 10:10 Resp 16 03/04/23 10:10 BP 126/72 03/04/23 10:10 Pulse Ox 94 03/04/23 10:10 O2 Flow Rate CV Function Including HR & BP: Stable Pain Control: Satisfactory Nausea & Vomiting: Negative Mental Status: Baseline Respiratory Status: Airway Patent Hydration Status: Satisfactory Anesthesia Complications: None
[2023-03-04 14:21] VITALS: BP 141/88
== END 2023-03-04 14:30 | disposition home or self-care (01) ==
LOC: ED 19:23 → SDS 22:55 → MS2 23:35 → SDS 03-04 14:30
PROVIDERS: ATTEND Surgery
PROC: 0DTJ4ZZ Resection of Appendix, Percutaneous Endoscopic Approach (ICD-10-PCS; principal; 2023-03-03)
DX: K35.32 Acute appendicitis with perforation, localized peritonitis, and gangrene, without abscess (principal); F32.A Depression, unspecified; F41.9 Anxiety disorder, unspecified; I49.3 Ventricular premature depolarization
CPT/HCPCS: 36415; 44970; 74177; 80053; 83605; 83690; 85025; 93005; 96374; 99284; 99285; A9270; J7120; Q9967

== ENCOUNTER 2023-11-14 09:13 | Outpatient (CLI) | payer MEDICARE ==
[2023-11-14 09:26] LABS: BASOPHILS # (AUTO) 0.1 10^3/uL (0.0-0.1); BASOPHILS % (AUTO) 1.3 %; EOSINOPHILS # (AUTO) 0.2 10^3/uL (0.0-0.7); HCT - HEMATOCRIT 43.6 % (42.0-52.0); HGB - HEMOGLOBIN 14.5 g/dL (14.0-18.0); LYMPHOCYTES % (AUTO) 22.3 %; MEAN CORPUSCULAR HEMOGLOBIN 30.5 pg (27.0-31.0); MEAN CORPUSCULAR HGB CONC 33.3 g/dL (32.0-36.0); MEAN CORPUSCULAR VOLUME 91.6 fL (80.0-94.0); MEAN PLATELET VOLUME 9.9 fL (7.4-11.4); MONOCYTES # (AUTO) 0.7 10^3/uL (0.0-1.0); MONOCYTES % (AUTO) 14.5 %; NEUTROPHILS # (AUTO) 2.6 10^3/uL (1.5-6.6); NEUTROPHILS % (AUTO) 56.7 %; PLT - PLATELET COUNT 124 10^3/uL (130-450); RED BLOOD COUNT 4.76 10^6/uL (4.70-6.10); RED CELL DISTRIBUTION WIDTH 13.2 % (12.0-15.0); WHITE BLOOD COUNT 4.6 x10^3/uL (4.8-10.8)
[2023-11-14 09:43] LABS: ALBUMIN 4.3 g/dL (3.2-5.5); ALBUMIN/GLOBULIN RATIO 1.8 (1.0-2.2); ALKALINE PHOSPHATASE 103 IU/L (42-121); ALT ALANINE AMINOTRANSFERASE 28 IU/L (10-60); AST ASPARTATE AMINOTRANSFERASE 30 IU/L (10-42); BILIRUBIN,TOTAL 0.7 mg/dL (0.2-1.0); BUN - BLOOD UREA NITROGEN 27 mg/dL (6-20); CALCIUM 9.6 mg/dL (8.5-10.3); CARBON DIOXIDE - CO2 28 mmol/L (21-32); CHLORIDE 108 mmol/L (101-111); CHOL/HDL RATIO 3.6 (<5.0); CHOLESTEROL 109 mg/dL; CREATININE 1.1 mg/dL (0.6-1.3); GFR - MDRD 65 (>89); GLUCOSE 102 mg/dL (74-104); HDL CHOLESTEROL 30 mg/dL; LDL CHOLESTEROL,CALCULATED 61 mg/dL; POTASSIUM 4.6 mmol/L (3.5-4.5); SODIUM 140 mmol/L (135-145); TOTAL PROTEIN 6.7 g/dL (6.4-8.9); TRIGLYCERIDES 92 mg/dL (48-352); VLDL CHOLESTEROL 18 mg/dL
[2023-11-14 09:56] LABS: THYROID STIMULATING HORMONE 2.15 uIU/mL (0.34-5.60)
== END 2023-11-14 09:14 | disposition home or self-care (01) ==
LOC: LAB 09:13
PROVIDERS: ATTEND Family Medicine
DX: I10 Essential (primary) hypertension (principal); E78.5 Hyperlipidemia, unspecified; Z12.5 Encounter for screening for malignant neoplasm of prostate
CPT/HCPCS: 36415; 80053; 80061; 84443; 85025; G0103; 83721; 84153

== ENCOUNTER 2024-01-07 08:00 | Outpatient (CLI) | payer MEDICARE ==
[2024-01-08 07:52] LABS: FECAL OCCULT BLOOD (FIT) POSITIVE (NEGATIVE)
== END 2024-01-07 23:59 | disposition home or self-care (01) ==
LOC: LAB.R 08:00
PROVIDERS: ATTEND Family Medicine
DX: R19.5 Other fecal abnormalities (principal)
CPT/HCPCS: 82274

== ENCOUNTER 2024-04-18 09:54 | Outpatient (CLI) | payer MEDICARE ==
--- NOTE | 2024-04-19 16:21 | XRAY Report ---
PROCEDURE: Hip w/Pelvis 2-3V RT INDICATIONS: HIP JOINT PAIN TECHNIQUE: 2 views of the hip were acquired. COMPARISON: 07/13/2020. FINDINGS: Bones: No fractures or dislocations. No suspicious bony lesions. Mild progression of now moderate right hip osteoarthrosis. Minimal-mild left hip degenerative changes. Mild lower lumbar spondylosis. Soft tissues: No suspicious soft tissue calcifications or masses. IMPRESSION: No acute bony abnormality. Mild progression of now moderate right hip osteoarthrosis. Reviewed by: Miles Segura MD on 04/19/2024 4:20 PM PDT Approved by: Miles Segura MD on 04/19/2024 4:20 PM PDT Station ID: [id number]
== END 2024-04-18 09:55 | disposition home or self-care (01) ==
LOC: DI 09:54
PROVIDERS: ATTEND Family Medicine
DX: M16.11 Unilateral primary osteoarthritis, right hip (principal)